=== PATIENT | male | born 1975 | race Caucasian/White ===

== ENCOUNTER → 2018-04-09 16:25 | Outpatient (CLI) | payer BC, SELFPAY ==
--- NOTE | 2018-04-09 16:29 | RAD_ITS ---
STUDY: X-RAY - ABDOMEN/PELVIS REASON FOR EXAM: Male, 42 years old. Nephrolithiasis. Right flank pain. TECHNIQUE: Two AP supine views of the abdomen and pelvis. COMPARISON: None. FINDINGS: Normal visualized lung bases. There is an unremarkable bowel gas pattern. There is no demonstrated free abdominal air. The visualized liver, spleen and kidneys are grossly normal in size and morphology. There is a vague 3 mm density which overlies the lower pole of the right kidney however this may represent density in the overlying colon. No other abnormal calcifications are seen. Normal soft tissue structures. Normal visualized osseous structures. RAD/Abdomen Single View IMPRESSION: 3 mm right renal calculus versus density in the overlying colon. Study is otherwise unremarkable. Electronically Signed: Calixto Edmondson DO at 22:26 EDT Tel [phone], Service support ,
== END ==
PROVIDERS: Family Provider Family Medicine; PCP Family Medicine; Referring Provider Family Medicine; Visit Provider Family Medicine
DX: N20.0 Calculus of kidney (principal)
CPT/HCPCS: 74018

== ENCOUNTER → 2019-06-27 08:22 | Outpatient (CLI) | payer BC, SELFPAY ==
[2019-06-27 10:31] LABS: ALB/GLOB Ratio 1.4 RATIO (0.9-2.4); AST(SGOT) 41 U/L (15-37); Alanine Aminotransfer ALT/SGPT 43 U/L (16-61); Albumin, Serum 4.2 g/dL (3.2-5.0); Alkaline Phosphatase 66 U/L (45-117); Anion Gap 5 (5-15); BUN 21 mg/dL (7-18); BUN/Creat Ratio 16.8 RATIO (10-20); Calcium,Total 8.9 mg/dL (8.5-10.1); Chloride 107 mmol/L (98-107); Cholesterol 211 mg/dL (200); Creatinine, Serum 1.25 mg/dL (0.70-1.30); EST Glomerular Filtration Rate 66 mL/min (>60); Est Glom Filt Rate - Afr Amer 80 mL/min (>60); Globulin 3.1 g/dL (2.2-4.2); Glucose 99 mg/dL (74-106); High Density Lipoprotein 57 mg/dL; Potassium 4.1 mmol/L (3.5-5.1); Protein, Total 7.3 g/dL (6.4-8.2); Sodium Level 143 mmol/L (136-145); Triglycerides 142 mg/dL; Very Low Density Lipoprotein 28 mg/dL (5-40)
== END ==
PROVIDERS: Family Provider Family Medicine; PCP Family Medicine; Referring Provider Family Medicine; Visit Provider Family Medicine
DX: E78.00 Pure hypercholesterolemia, unspecified (principal)
CPT/HCPCS: 36415; 80053; 80061

== ENCOUNTER → 2019-09-23 | Outpatient (CLI) | payer BC, SELFPAY ==
[2019-09-23 10:26] LABS: Absolute Lymphocyte Count 2.21 X10^3/uL (0.83-4.51); Basophil# 0.05 X10^3/uL; Basophil% 0.8 % (0-1); Eosinophil# 0.11 X10^3/uL; Eosinophils% 1.8 % (0-5); Hematocrit 48.3 % (40-54); Hemoglobin 16.8 g/dL (13.0-16.5); Lymphocyte # 2.21 X10^3/ul (4.0); Lymphocyte % 35.9 % (19-41); Mean Corp Hgb Conc 34.8 g/dL (32-36); Mean Corpuscular Hgb 29.9 pg (27.0-32.0); Mean Corpuscular Volume 86.1 fL (80-94); Mean Platelet Vol. 11.6 fl (6.2-12.0); Monocyte# 0.74 X10^3/uL; NRBC Flagged by Analyzer 0 % (0-5); Neutrophil # 3.01 X10^3/uL (2.7-7.7); Neutrophil % 48.9 % (47-70); Platelet Count 146 K/mm3 (150-450); RBC Distribution Width CV 11.8 % (11.6-14.6); RBC Distribution Width SD 36.4 fl (35.1-43.9); Red Blood Count 5.61 M/mm3 (4.6-6.2); White Blood Count 6.2 K/mm3 (4.4-11.0)
[2019-09-23 10:27] LABS: Erythrocyte Sedimentation Rate < 1 mm/hr (0-15)
[2019-09-23 10:53] LABS: Anion Gap 5 (5-15); BUN 17 mg/dL (7-18); BUN/Creat Ratio 15.7 RATIO (10-20); Calcium,Total 9.1 mg/dL (8.5-10.1); Chloride 108 mmol/L (98-107); Creatinine, Serum 1.08 mg/dL (0.70-1.30); EST Glomerular Filtration Rate 78 mL/min (>60); Est Glom Filt Rate - Afr Amer 95 mL/min (>60); Glucose 95 mg/dL (74-106); Potassium 4.2 mmol/L (3.5-5.1); Sodium Level 142 mmol/L (136-145); Thyroid Stim Hormone (TSH) 1.92 uIU/mL (0.358-3.74)
== END | disposition home or self-care (01) ==
LOC: MFPLAB 08:48
PROVIDERS: PCP Family Medicine; Visit Provider Family Medicine
DX: R42 Dizziness and giddiness (principal); R51 Headache
CPT/HCPCS: 36415; 80048; 83735; 84443; 85025; 85652

== ENCOUNTER → 2020-11-01 07:54 | Outpatient (CLI) | payer BC, SELFPAY ==
[2020-11-01 10:49] LABS: ALB/GLOB Ratio 1.5 RATIO (0.9-2.4); AST(SGOT) 24 U/L (15-37); Alanine Aminotransfer ALT/SGPT 30 U/L (16-61); Albumin, Serum 4.1 g/dL (3.2-5.0); Alkaline Phosphatase 68 U/L (45-117); Anion Gap 3 (5-15); BUN 14 mg/dL (7-18); BUN/Creat Ratio 11.2 RATIO (10-20); Chloride 104 mmol/L (98-107); Cholesterol 185 mg/dL (200); Creatinine, Serum 1.25 mg/dL (0.70-1.30); EST Glomerular Filtration Rate 66 mL/min (>60); Est Glom Filt Rate - Afr Amer 80 mL/min (>60); Globulin 2.7 g/dL (2.2-4.2); Glucose 103 mg/dL (74-106); High Density Lipoprotein 57 mg/dL; Potassium 4.3 mmol/L (3.5-5.1); Protein, Total 6.8 g/dL (6.4-8.2); Sodium Level 140 mmol/L (136-145); Triglycerides 86 mg/dL; Very Low Density Lipoprotein 17 mg/dL (5-40)
== END ==
PROVIDERS: PCP Family Medicine; Referring Provider Family Medicine; Visit Provider Family Medicine
DX: E78.00 Pure hypercholesterolemia, unspecified (principal)
CPT/HCPCS: 36415; 80053; 80061

== ENCOUNTER 2021-08-22 10:08 | Outpatient (CLI) | payer BC, SELFPAY ==
--- NOTE | 2021-08-22 10:14 | US_ITS ---
STUDY: ABDOMINAL ULTRASOUND - RIGHT UPPER QUADRANT REASON FOR VISIT: Male, 46 years old . Tender swelling/lump in the epigastric region. TECHNIQUE: Ultrasound evaluation of the area of interest was performed with real-time and static blackwell-scale imaging. TECHNICAL QUALITY: Adequate. COMPARISON: None. FINDINGS: Multiple imaging of the area of the painful lump was obtained. No sonographic abnormality is seen. US/Abdomen Limited IMPRESSION: No sonographic abnormality is seen. Electronically Signed: Saurav Shaw MD at 11:05 EST ,
== END 2021-08-22 23:59 | disposition home or self-care (01) ==
LOC: US 10:11
PROVIDERS: PCP Family Medicine; Referring Provider Family Medicine; Visit Provider Family Medicine
DX: R19.00 Intra-abdominal and pelvic swelling, mass and lump, unspecified site (principal)
CPT/HCPCS: 76705

== ENCOUNTER → 2021-11-20 | Outpatient (CLI) | payer BC, SELFPAY ==
--- NOTE | 2021-11-20 10:06 | RAD_ITS ---
STUDY: X-RAY - RIGHT ELBOW REASON FOR EXAM: Male, 46 years old. ELBOW PAIN TECHNIQUE: 3 view(s) of the LEFT elbow. COMPARISON: None. FINDINGS: Normal visualized humerus, radius and ulna. Normal radiocapitellar and ulnotrochlear articulations. The soft tissue structures are unremarkable. RAD/Elbow min 3 Views IMPRESSION: Normal x-ray examination of the LEFT elbow. Electronically Signed: Kanu Merlos MD at 20:05 EDT ,
== END | disposition home or self-care (01) ==
LOC: MTRAD 10:02
PROVIDERS: PCP Family Medicine; Referring Provider Family Medicine; Visit Provider Family Medicine
DX: M25.521 Pain in right elbow (principal)
CPT/HCPCS: 73080

== ENCOUNTER 2021-12-05 08:00 | Outpatient (RCR) | payer BC, SELFPAY ==
--- NOTE | 2021-10-29 10:26 | HP.PTEVAL ---
Patient's Visit Information STACEY JARQUIN is a 46 year old M referred to Physical Therapy by Dr. Jere Sal MD with a diagnosis of Right Medial Epicondylitis. Date of Evaluation: 10/29/21 Physical Therapist: Wojciech Zuniga, PT, NIKI, SCS, CSCS - Dorie Diaz is a pleasant 46yo who I'm familiar with as I treated him in the past. He states that is has had a gradual onset of right elbow pain over the last 2 months, primarily from building a structure in his backyard and playing golf. He is an avid golfer and is planning on playing in a tournament in [place] next . - Pain Right Elbow Pain Intensity (Out of 10): 6 Pain Intensity Range: 2, 8 - Objective PROM of Elbow and wrist is WFL. No crepitus noted with AROM/PROM. MMT R wrist Ext/ flexion 43/36 L wrist ext/flexion 40/31. Point tender at the inset of common tendon. Neg tinel sign at elbow no referred pain - Balance/Special Test Scores Quick DASH Score: 6.8175 - Goals Goal 1:: Understand the healing process and importance of bracing at wrist to alleviate tension on tendon Goal Time Frame: 1 Week Goal 2:: Start Eccentric strengthening when getting back from Golf tournament Goal Time Frame: 2 Weeks Goal 3:: Candidate for dexamethasone to decrease inflammation. Goal Time Frame: 1 Week - Rehabilitation Potential Rehabilitation Potential: Good - Anticipated Interventions Thank you for the opportunity to evaluate your patient. For Medicare and Medicare HMO plans, please review the plan of care and approve it. It will need to be FAXED BACK to us at [phone] for Medicare purposes. For Medicare only, by signing this I certify the plan of care. Please let me know if there are questions or concerns regarding this plan of care. Physician Signature: Date:
== END 2021-12-05 19:00 | disposition home or self-care (01) ==
LOC: PT 08:00
PROVIDERS: PCP Family Medicine; Referring Provider Family Medicine; Visit Provider Family Medicine
DX: M77.01 Medial epicondylitis, right elbow (principal)
CPT/HCPCS: 97014; 97035; 97140; 97161; G0283

== ENCOUNTER → 2022-12-18 | Outpatient (CLI) | payer BC, SELFPAY ==
[2022-12-18 15:33] LABS: Bacteria 0 SEEN /hpf (None Seen); Mucous, Urine 0 SEEN /hpf (<or=2+); Red Blood Cells-Urine 0 SEEN /hpf (0-5); Squamous Epithelial Cells - UA 0 SEEN /hpf (0-5); White Blood Cells 0 SEEN /hpf (0-5)
[2022-12-18 16:06] LABS: Color, Urine Yellow (Yellow); Glucose, Dipstick Normal (Normal); Ketone-Dipstick Negative (Negative); Leukocyte Esterase-Dipstick Negative /ul (Negative); Nitrite-Dipstick Negative (Negative); Occult Blood-Urine Negative /ul (Negative); Protein-Dipstick Negative (Negative); Urine Bilirubin Dipstick Negative (Negative); Urine Clarity Clear (Clear); Urine Urobilinogen Normal (Normal)
== END | disposition home or self-care (01) ==
LOC: LABSPEC 15:16
PROVIDERS: PCP Family Medicine; Referring Provider Family Medicine; Visit Provider Family Medicine
DX: N20.0 Calculus of kidney (principal)
CPT/HCPCS: 81001; 87086

== ENCOUNTER → 2023-02-02 | Outpatient (CLI) | payer BC, SELFPAY ==
[2023-02-02 11:32] LABS: ALB/GLOB Ratio 1.2 RATIO (0.9-2.4); AST(SGOT) 19 U/L (15-37); Alanine Aminotransfer ALT/SGPT 21 U/L (16-61); Albumin, Serum 3.8 g/dL (3.2-5.0); Alkaline Phosphatase 64 U/L (45-117); Anion Gap 3 (5-15); BUN 18 mg/dL (7-18); BUN/Creat Ratio 13.8 RATIO (10-20); Calcium,Total 8.9 mg/dL (8.5-10.1); Chloride 107 mmol/L (98-107); Cholesterol 262 mg/dL (200); EST Glomerular Filtration Rate 62 mL/min (>60); Est Glom Filt Rate - Afr Amer 75 mL/min (>60); Globulin 3.2 g/dL (2.2-4.2); Glucose 110 mg/dL (74-106); High Density Lipoprotein 57 mg/dL; Potassium 4.2 mmol/L (3.5-5.1); Sodium Level 140 mmol/L (136-145); Triglycerides 100 mg/dL; Very Low Density Lipoprotein 20 mg/dL (5-40)
== END | disposition home or self-care (01) ==
LOC: MTLAB 08:41
PROVIDERS: PCP Family Medicine; Referring Provider Family Medicine; Visit Provider Family Medicine
DX: Z00.00 Encounter for general adult medical examination without abnormal findings (principal)
CPT/HCPCS: 36415; 80053; 80061

== ENCOUNTER → 2023-12-01 | Outpatient (CLI) | payer BC, SELFPAY ==
[2023-12-01 10:48] LABS: ALB/GLOB Ratio 1.2 RATIO (0.9-2.4); AST(SGOT) 21 U/L (15-37); Alanine Aminotransfer ALT/SGPT 25 U/L (16-61); Alkaline Phosphatase 65 U/L (45-117); Anion Gap 6 (5-15); BUN 18 mg/dL (7-18); BUN/Creat Ratio 14.8 RATIO (10-20); Calcium,Total 9.2 mg/dL (8.5-10.1); Chloride 104 mmol/L (98-107); Cholesterol 189 mg/dL (200); Creatinine, Serum 1.22 mg/dL (0.70-1.30); EST Glomerular Filtration Rate 67 mL/min (>60); Est Glom Filt Rate - Afr Amer 81 mL/min (>60); Globulin 3.2 g/dL (2.2-4.2); Glucose 107 mg/dL (74-106); High Density Lipoprotein 65 mg/dL; PSA,Total - Annual Screen 0.42 ng/mL (0.00-4.00); Potassium 4.5 mmol/L (3.5-5.1); Protein, Total 7.2 g/dL (6.4-8.2); Sodium Level 139 mmol/L (136-145); Triglycerides 108 mg/dL; Very Low Density Lipoprotein 22 mg/dL (5-40)
== END | disposition home or self-care (01) ==
LOC: MFPLAB 08:47
PROVIDERS: PCP Family Medicine; Visit Provider Family Medicine
DX: Z12.5 Encounter for screening for malignant neoplasm of prostate (principal); E78.00 Pure hypercholesterolemia, unspecified
CPT/HCPCS: 36415; 80053; 80061; 84153; G0103

== ENCOUNTER → 2024-11-30 | Outpatient (CLI) | payer BC, SELFPAY ==
[2024-11-30 11:06] LABS: AST(SGOT) 25 U/L (<=37); Alanine Aminotransfer ALT/SGPT 18 U/L (<=46); Albumin, Serum 4.5 g/dL (3.5-5.0); Alkaline Phosphatase 68 U/L (40-129); Anion Gap 10 (5-15); BUN 19 mg/dL (4-19); BUN/Creat Ratio 16.5 RATIO (10-20); Calcium,Total 9.2 mg/dL (7.6-11.0); Carbon Dioxide 26.8 mmol/L (21.0-32.0); Chloride 102 mmol/L (98-108); Cholesterol 194 mg/dL (<=200); Creatinine, Serum 1.15 mg/dL (0.70-1.20); EST Glomerular Filtration Rate 77 (>60); Globulin 2.3 g/dL (2.2-4.2); Glucose 107 mg/dL (70-99); High Density Lipoprotein 50 mg/dL; Low Density Lipoprotein Calc. 126 mg/dL; PSA,Total - Annual Screen 0.48 ng/mL (0.02-4.00); Potassium 4.3 mmol/L (3.3-5.1); Protein, Total 6.8 g/dL (5.9-8.4); Sodium Level 139 mmol/L (133-145); Total Bilirubin 0.59 mg/dL (0.00-1.30); Triglycerides 90 mg/dL; Very Low Density Lipoprotein 18 mg/dL (5-40); cholesterol:hdl ratio screen 3.85
== END | disposition home or self-care (01) ==
LOC: MFPLAB 08:51
PROVIDERS: PCP Family Medicine; Referring Provider Family Medicine; Visit Provider Family Medicine
DX: E78.00 Pure hypercholesterolemia, unspecified (principal); Z12.5 Encounter for screening for malignant neoplasm of prostate
CPT/HCPCS: 36415; 80053; 80061; 84153; G0103

== ENCOUNTER → 2025-01-25 | Outpatient (CLI) | payer BC, SELFPAY ==
--- NOTE | 2025-01-25 06:37 | CT_ITS ---
PROCEDURE: LIMITED CHEST CT CARDIAC ONLY 01/25/2025 REASON FOR EXAM: PURE HYPERCHOLESTEROLEMIA, UNSPECIFIED TECHNIQUE: LIMITED CHEST CT CARDIAC ONLY CONTRAST: None One or more dose reduction techniques were used (e.g., Automated exposure control, adjustment of the mA and/or kV according to patient size, use of iterative reconstruction technique). RADIATION DOSE SUMMARY: CTDlvol: 12.19 mGy DLP: 219.42 mGycm COMPARISON: None FINDINGS: Small benign-appearing mediastinal lymph nodes. The heart is not enlarged. No evidence of coronary artery calcification. The lungs are clear. CT/Limited Chest CT Cardiac Only IMPRESSION: No evidence of coronary artery calcification. The lungs are clear. Reading Location: [place] [id number]
--- NOTE | 2025-01-25 06:37 | CT_ITS ---
PROCEDURE: LIMITED CHEST CT CARDIAC ONLY 01/25/2025 REASON FOR EXAM: PURE HYPERCHOLESTEROLEMIA, UNSPECIFIED TECHNIQUE: LIMITED CHEST CT CARDIAC ONLY CONTRAST: None One or more dose reduction techniques were used (e.g., Automated exposure control, adjustment of the mA and/or kV according to patient size, use of iterative reconstruction technique). RADIATION DOSE SUMMARY: CTDlvol: 12.19 mGy DLP: 219.42 mGycm COMPARISON: None FINDINGS: Small benign-appearing mediastinal lymph nodes. The heart is not enlarged. No evidence of coronary artery calcification. The lungs are clear. CT/Limited Chest CT Cardiac Only IMPRESSION: No evidence of coronary artery calcification. The lungs are clear. Reading Location: [place] [address]
--- OUTSIDE RECORDS SUMMARY | 2025-01-25 06:38 | XMS RPT_ITS | CCD ---
Author Organization [facility] Care Team Providers Care Collective Bargaining Specialist Name Role Phone Sandra Sal Primary Care Provider MARYA CONNELL Attending Unavailable MARYA CONNELL Referring Unavailable SANDRA SAL Primary Care Unavail able MARYA CONNELL Attending Unavailable MARYA CONNELL Referring Unavailable SANDRA SAL Primary Care Unavail able SANDRA SAL Admitting Unavail able MARYA CONNELL Attending Unavailable SANDRA SAL Referring Unavail able SANDRA SAL Primary Care Unavail able MARYA CONNELL Admitting Unavailable BASSAM BUENROSTRO Attending Unavail able MARYA CONNELL Referring Unavailable SANDRA SAL Primary Care Unavail able Sandra Sal MD Primary Care Provider Sandra Sal MD Primary Care Provider REGAN ALVARADO Attending UnavailREGAN Christianson Referring UnavailSANDRA Moya Primary Care UnavailSANDRA Moya Primary Care Unavailabl AIDAN Crespo Attending Unavailable AIDAN FREIRE Referring Unavailable SANDRA SAL Primary Care UnavailSandra Moya MD Primary Care Provider Unavailable Primary Care Provider Unavailpretty Sal MD, Dr. Handley Primary Care Provider Dr. Sandra Sal MD Attending Provider Dr. Sandra Sal MD Referring Provider [phone] Sandra Sal Attending Unavailable Sandra Sal Referring Unavailable Sandra Sal Primary Care Unavailable Sandra Sal Attending Unavailable Sandra Sal Referring Unavailable Sandra Sal Primary Care Unavailable Medications Current Medications Medication Drug Class(es) Dates Sig (Normalized) Sig (Original) aspirin 81 mg delayed release oral tablet (2 sources) Platelet Aggregation Inhibitor, Nonsteroidal Anti-inflammatory Drug take 1 tablet by mouth once daily aspirin 81 MG EC tablet Take 81 mg by mouth daily . 0 Active atorvastatin 10 mg oral tablet (7 sources) HMG-CoA Reductase Inhibitor Start: 11-11-19 08 atorvastatin calcium(LIPITOR 10 MG TAB) Take one(1) tablet daily. 0 11/11/2007 Active Comment on above: Take one(1) tablet d aily. ciprofloxacin 3 mg/ml ophthalmic solution (2 sources) Quinolone Antimicrobial Start: 10-16-19 25 End: 10-23-19 25 take 2 drop(s) into the eye(s) every four hours ciprofloxacin (Ciloxan) 0.3 % ophthalmic solution Indications: Discomfort of right eye Administer 2 drops into both eyes every 4 hours for 7 days. 5 mL 10/15/2024 10/22/2024 Active hydroCHLOROthiazide 25 mg oral tablet (4 sources) Thiazide Diuretic Start: 10-20-19 21 take 1 tablet by mouth once daily hydroCHLOROthiazide (HYDRODIURIL, ESIDRIX) 25 mg tablet Indications: Hypercalciuria Take 1 tablet by mouth once daily. 30 tablet 11 10/19/2020 Active Comment on above: Take 1 tablet by maikel th once daily. multivit with iron,minerals (MULTIVITAMIN AND MINERALS ORAL) (4 sources) multivit with iron,minerals (MULTIVITAMIN AND MINERALS ORAL) Take by mouth once daily. Active multivit with ir on,minerals (MULTIVITAMIN AND MINERALS ORAL) Take by mouth once daily. 0 Active Comment on above: Take by mouth once d aily. multivitamin (THERAGRAN) per tablet (2 sources) take 1 tablet by mouth once daily multivitamin (THERAGRAN) per tablet Take 1 tablet by mouth daily . 0 Active omega 9-pdx-nmf-fish oil (FISH OIL) 100-160-1,000 mg cap (4 sources) omega 3-dha-epa- fish oil (FISH OIL) 100-160-1,000 mg cap Take by mouth once daily. Active omega 3-dha-epa- fish oil (FISH OIL) 100-160-1,000 mg cap Take by mouth once daily. 0 Active Comment on above: Take by mouth once d aily. potassium citrate 10 meq extended release oral tablet (8 sources) Start: 11-28-2022 End: 12-08-2024 take 2 tablets by mouth twice daily potassium citrate ER (UROCIT-K) 10 mEq (1,080 mg) Indications: Kidney stone Take 2 tablets by mouth two times a day. 360 tablet 3 12/08/2024 Active Start: 10-29-2021 End: 10-22-2022 take 2 tablets by mouth twice daily potassium citrate ER (UROCIT-K) 10 mEq (1,080 mg) Indications: Kidney stone Take 2 tablets by mouth twice daily. 120 tablet 11 10/22/2022 Active Comment on above: Take 2 tablets by mo [facility] twice daily. Completed/Discontinued Medications Medication Drug Class(es) Dates Sig (Normalized) Sig (Original) gadoterate meglumine (DOTAREM) injection 16 mL (1 source) Start: 01-06-2019 End: 01-06-2019 gadoterate meglumine (DOTAREM) injection 16 mL ketorolac tromethamine 10 mg oral tablet (2 sources) Nonsteroidal Anti-inflammatory Drug, Cyclooxygenase Inhibitor Start: 08-05-2020 End: 10-22-2022 take 1 tablet by mouth every six hours as needed keTORolac (TORADOL) 10 mg tablet Take 1 tablet by mouth every 6 hours as needed. 20 tablet 0 08/05/2020 10/22/2022 Discontinued (Course of therapy completed) Comment on above: Take 1 tablet by maikel th every 6 hours as needed. ondansetron 4 mg disintegrating oral tablet (2 sources) Serotonin-3 Receptor Antagonist Start: 08-22-2019 End: 10-22-2022 take 1 tablet by mouth every six hours as needed ondansetron orally disintegrating (ZOFRAN ODT) 4 mg disintegrating tablet Take 1 tablet by mouth every 6 hours as needed. 10 tablet 0 08/22/2019 10/22/2022 Discontinued (Course of therapy completed) Comment on above: Take 1 tablet by maikel th every 6 hours as needed. tamsulosin hydrochloride 0.4 mg oral capsule (4 sources) alpha-Adrenergic Rob Start: 08-15-2020 End: 10-22-2022 take 1 capsule by mouth once daily tamsulosin (FLOMAX) 0.4 mg Indications: benign prostatic hyperplasia Take 1 capsule by mouth once daily. 15 capsule 0 08/29/2020 10/22/2022 Discontinued Comment on above: Take 1 capsule by mo ut once daily for 20 days. 30 minutes after the same meal each day. Take 1 capsule by mo ut once daily. Problems Active Problems Problem Classification Problem Date Documented Date Episodic/Chronic Abdominal pain (2 sources) Left flank pain; Translations: [Unspecified abdominal pain] Onset: 10-22-2022 Episodic Calculus of urinary tract (9 sources) Kidney stone; Translations: [Calculus of kidney] Onset: 08-29-2020 Episodic Disorders of lipid metabolism (2 sources) Pure hypercholesterolemia, unspecified; Translations: [Pure hypercholesterolemia, unspecified] Onset: 12-06-2024 Chronic Other eye disorders (2 sources) Pain in eye; Translations: [Ocular pain, right eye] 10-15-2024 Episodic Other nervous system disorders (2 sources) Numbness and tingling sensation of skin; Translations: [Numbness and tingling] Episodic Other nervous system disorders (1 source) Carpal tunnel syndrome of right wrist; Translations: [Carpal tunnel syndrome on right] Spondylosis; intervertebral disc disorders; other back problems (2 sources) Herniation of nucleus pulposus of cervical intervertebral disc; Translations: [HNP (herniated nucleus pulposus), cervical] Past or Other Problems Problem Classification Problem Date Documented Date Episodic/Chronic Bacterial infection; unspecified site (4 sources) Infection by methicillin sensitive Staphylococcus aureus; Translations: [Methicillin susceptible Staphylococcus aureus infection, unspecified site] Onset: 09-18-2008 09-18-2008 Episodic Other nervous system disorders (1 source) Paresthesia; Translations: [Paresthesia] Episodic Results Test Name Value Interpretation Reference Range Facility Anion gap in Serum or Plasma Ordered By: Sandra Sal on 11-30-2024 Anion gap [Moles/Vol] 10 mmol/L 11-24 [facility] BUN/creatinine ratioOrdered By: Sandra Sal on 11-30-2024 Urea nitrogen/Creatinine [Mass ratio] 16.5 mg/mg - [facility] Bilirubin, totalOrdered By: Sandra Sal on 11-30-2024 Bilirubin [Mass/Vol] 0.59 mg/dL 0.00-1.30 [facility] Calculated very low density lipoprotein (VLDL) cholesterol measurementOrdered By: Sandra Sal on 11-30-2024 Calculated very low density lipoprotein (VLDL) cholesterol measurement 18 mg/dL 5-40 [facility] Carbon dioxide, total [Moles /volume] in Central venous bloodOrdered By: Sandra Sal on 11-30-2024 CO2 [Moles/Vol] 26.8 mmol/L 21.0-32.0 [facility] Chloride assayOrdered By: Melva Sal on 11-30-2024 Chloride [Moles/Vol] 102 mmol/L 98-108 [facility] Comprehensive Metabolic Prof ilon 11-30-2024 Albumin [Mass/Vol] 4.5 g/dL Normal 3.5-5.0 [facility] Comment on above: Order Comment: Order Date: 11/30/24 Order Info: [id number] - CMP Order Info: [id number] - LIPID Order Info: [id number] - PSA Performed By: #### L [id number], L501.9910, L500.4100 #### [facility] [address] [place], [place], [id number] Albumin/Globulin [Mass ratio] 2.0 {ratio} Normal 0.9-2.4 [facility] Comment on above: Order Comment: Order Date: 11/30/24 Order Info: [id number] - CMP Order Info: [id number] - LIPID Order Info: [id number] - PSA Performed By: #### L 500.4050, L501.9910, L500.4100 #### [facility] [address] [place], [address] ALK PHOS 68 U/L Normal 40-129 [facility] Comment on above: Order Comment: Order Date: 11/30/24 Order Info: [id number] - CMP Order Info: [id number] - LIPID Order Info: [id number] - PSA Performed By: #### L 500.4050, L501.9910, L500.4100 #### [facility] [address] [place], [address] ALT [Catalytic activity/Vol] 18 U/L Normal <=46 [facility] Comment on above: Order Comment: Order Date: 11/30/24 Order Info: [id number] - CMP Order Info: - LIPID Order Info: [id number] - PSA Performed By: #### L 500.4050, L501.9910, L500.4100 #### [facility] [address] [place], [address] AST [Catalytic activity/Vol] 25 U/L Normal <=37 [facility] Comment on above: Order Comment: Order Date: 11/30/24 Order Info: [id number] - CMP Order Info: - LIPID Order Info: [id number] - PSA Performed By: #### L 500.4050, L501.9910, L500.4100 #### [facility] [address] [place], [address] Bilirubin [Mass/Vol] 0.59 mg/dL Normal 0.00-1.30 [facility] Comment on above: Order Comment: Order Date: 11/30/24 Order Info: [id number] - CMP Order Info: [id number] - LIPID Order Info: [id number] - PSA Performed By: #### L 500.4050, L501.9910, L500.4100 #### [facility] [address] [place], [address] BUN/CRE 16.5 RATIO Normal 10-20 [facility] Comment on above: Order Comment: Order Date: 11/30/24 Order Info: [id number] - CMP Order Info: - LIPID Order Info: [id number] - PSA Performed By: #### L 500.4050, L501.9910, L500.4100 #### [facility] [address] [place], [address] Calcium [Mass/Vol] 9.2 mg/dL Normal 7.6-11.0 [facility] Comment on above: Order Comment: Order Date: 11/30/24 Order Info: [id number] - CMP Order Info: [id number] - LIPID Order Info: [id number] - PSA Performed By: #### L 500.4050, L501.9910, L500.4100 #### [facility] [address] [place], [address] Chloride [Moles/Vol] 102 mmol/L Normal 98-108 [facility] Comment on above: Order Comment: Order Date: 11/30/24 Order Info: [id number] - CMP Order Info: [id number] - LIPID Order Info: [id number] - PSA Performed By: #### L 500.4050, L501.9910, L500.4100 #### [facility] [address] [place], [address] CO2 [Moles/Vol] 26.8 mmol/L Normal 21.0-32.0 [facility] Comment on above: Order Comment: Order Date: 11/30/24 Order Info: [id number] - CMP Order Info: [id number] - LIPID Order Info: [id number] - PSA Performed By: #### L 500.4050, L501.9910, L500.4100 #### [facility] [address] [place], [address] Creatinine [Mass/Vol] 1.15 mg/dL Normal 0.70-1.20 [facility] Comment on above: Order Comment: Order Date: 11/30/24 Order Info: [id number] - CMP Order Info: [id number] - LIPID Order Info: [id number] - PSA Performed By: #### L 500.4050, L501.9910, L500.4100 #### [facility] [address] [place], [address] GAP 10 Normal 5-15 [facility] Comment on above: Order Comment: Order Date: 11/30/24 Order Info: [id number] - CMP Order Info: - LIPID Order Info: [id number] - PSA Performed By: #### L 500.4050, L501.9910, L500.4100 #### [facility] [address] [place], [address] GFR/1.73 sq M.predicted among non-blacks MDRD (S/P/Bld) [Vol rate/Area] 77 mL/min/{1.73_m2} Normal >60 [facility] Comment on above: Order Comment: Order Date: 11/30/24 Order Info: [id number] - CMP Order Info: - LIPID Order Info: [id number] - PSA Result Comment: mL/m in/1.73m2 CKD-EPI Creatinine Equation (2020) Performed By: #### L 500.4050, L501.9910, L500.4100 #### [facility] [address] [place], [address] Globulin (S) [Mass/Vol] 2.3 g/dL Normal 2.2-4.2 [facility] Comment on above: Order Comment: Order Date: 11/30/24 Order Info: [id number] - CMP Order Info: - LIPID Order Info: [id number] - PSA Performed By: #### L 500.4050, L501.9910, L500.4100 #### [facility] [address] [place], [address] Glucose [Mass/Vol] 107 mg/dL High 70-99 [facility] Comment on above: Order Comment: Order Date: 11/30/24 Order Info: [id number] - CMP Order Info: - LIPID Order Info: [id number] - PSA Performed By: #### L 500.4050, L501.9910, L500.4100 #### [facility] [address] [place], [address] Potassium [Moles/Vol] 4.3 mmol/L Normal 3.3-5.1 [facility] Comment on above: Order Comment: Order Date: 11/30/24 Order Info: [id number] - CMP Order Info: [id number] - LIPID Order Info: [id number] - PSA Performed By: #### L 500.4050, L501.9910, L500.4100 #### [facility] [address] [place], [address] Sodium [Moles/Vol] 139 mmol/L Normal 133-145 [facility] Comment on above: Order Comment: Order Date: 11/30/24 Order Info: [id number] - CMP Order Info: [id number] - LIPID Order Info: [id number] - PSA Performed By: #### L 500.4050, L501.9910, L500.4100 #### [facility] [address] [place], [place], [id number] T PROT 6.8 g/dL Normal 5.9-8.4 [facility] Comment on above: Order Comment: Order Date: 11/30/24 Order Info: [id number] - CMP Order Info: [id number] - LIPID Order Info: [id number] - PSA Performed By: #### L 500.4050, L501.9910, L500.4100 #### [facility] [address] [place], [address] Urea nitrogen [Mass/Vol] 19 mg/dL Normal 4-19 [facility] Comment on above: Order Comment: Order Date: 11/30/24 Order Info: [id number] - CMP Order Info: [id number] - LIPID Order Info: [id number] - PSA Performed By: #### L 500.4050, L501.9910, L500.4100 #### [facility] [address] [place], [address] Glomerular filtration rate ( GFR) estimation/1.73 sq m using serum, plasma, or whole bOrdered By: Sandra Sal on 11-30-2024 GFR/1.73 sq M.predicted among non-blacks MDRD (S/P/Bld) [Vol rate/Area] 77 mL/min/{1.73_m2} >60 [facility] Comment on above: mL/min/1.73m2 CKD-EP I Creatinine Equation (2020) LDL calc ser/plasOrdered By: Sandra Sal on 11-30-2024 Cholesterol in LDL [Mass/Vol] 126 mg/dL [facility] Comment on above: Nmfdskiutu=075-160 m g/dL & Higher Pqau=076 mg/dL or greater Laboratory - Chemistry and C hemistry - challengeOrdered By: Sandra Sal on 11-30-2024 AST [Catalytic activity/Vol] 25 U/L <38 [facility] Lipid Profileon 11-30-2024 CHOL:HDL 3.85 Normal [facility] Comment on above: Order Comment: Order Date: 11/30/24 Order Info: [id number] - CMP Order Info: [id number] - LIPID Order Info: [id number] - PSA Performed By: #### L 500.4050, L501.9910, L500.4100 #### [facility] [address] [place], [address] Cholesterol [Mass/Vol] 194 mg/dL Normal <=200 [facility] Comment on above: Order Comment: Order Date: 11/30/24 Order Info: [id number] - CMP Order Info: [id number] - LIPID Order Info: [id number] - PSA Result Comment: Chol esterol level, Desirable <200 mg/dL Borderline high cholesterol 200-239 mg/dL High cholesterol >=240 mg/dL Recommendations of the NCEP Adult Treatment Panel for the following risk-cutoff thresholds for the [place] population. Performed By: #### L 500.4050, L501.9910, L500.4100 #### [facility] [address] [place], [address] Cholesterol in HDL [Mass/Vol] 50 mg/dL Normal [facility] Comment on above: Order Comment: Order Date: 11/30/24 Order Info: [id number] - CMP Order Info: [id number] - LIPID Order Info: [id number] - PSA Result Comment: Lu on[place] Cholesterol Education Program (NCEP) guidelines: <40 mg/dL: Low HDL-cholesterol (major risk factor for CHD) >= 60 mg/dL: High HDL-cholesterol (negative risk factor for CHD) HDL-cholesterol is affected by a number of factors, e.g. smoking, exercise, hormones, sex and age. Performed By: #### L 500.4050, L501.9910, L500.4100 #### [facility] [address] [place], [address] Cholesterol in LDL [Mass/Vol] 126 mg/dL Normal [facility] Comment on above: Order Comment: Order Date: 11/30/24 Order Info: [id number] - CMP Order Info: [id number] - LIPID Order Info: [id number] - PSA Result Comment: Bord vyyftf=873-333 mg/dL Higher Xdpw=413 mg/dL or greater Performed By: #### L 500.4050, L501.9910, L500.4100 #### [facility] [address] [place], [address] Cholesterol in VLDL [Mass/Vol] 18 mg/dL Normal 5-40 [facility] Comment on above: Order Comment: Order Date: 11/30/24 Order Info: [id number] - CMP Order Info: [id number] - LIPID Order Info: [id number] - PSA Performed By: #### L 500.4050, L501.9910, L500.4100 #### [facility] [address] [place], [address] Triglyceride [Mass/Vol] 90 mg/dL Normal [facility] Comment on above: Order Comment: Order Date: 11/30/24 Order Info: [id number] - CMP Order Info: [id number] - LIPID Order Info: [id number] - PSA Result Comment: The drugs N-Acetylcysteine and Metamizole may falsely depress this assay. Normal range: <150 mg/dL Borderline High: 150-199 mg/dL High: 200-499 mg/dL Very High: >500 mg/dL Performed By: #### L 500.4050, L501.9910, L500.4100 #### [facility] [address] [place], [address] PSA,Total - Annual Screenon 11-30-2024 PSA,TOT SCREEN 0.48 ng/mL Normal 0.02-4.00 [facility] Comment on above: Order Comment: Order Date: 11/30/24 Order Info: [id number] - CMP Order Info: [id number] - LIPID Order Info: [id number] - PSA Result Comment: This test was performed using the [employer] tPSA method. Measured values of a patient??sample can vary depending on the testing procedure used. PSA values determined on patient samples by different testing procedures cannot be used interchangeably. If there is a change in PSA assays while monitoring therapy, sequential testing should be performed to confirm baseline values. Performed By: #### L 500.4050, L501.9910, L500.4100 #### [facility] [address] [place], [address] Potassium measurement (mass/ volume)Ordered By: Sandra Sal on 11-30-2024 Potassium (Unsp spec) [Mass/Vol] 4.3 mmol/L 3.3-5.1 [facility] Screening total cholesterol/ high density lipoprotein (HDL) cholesterol ratioOrdered By: Sandra Sal on 11-30-2024 Cholesterol.total/Choles terol in HDL [Mass ratio] 3.85 {ratio} [facility] Serum creatinine measurement (mass/volume)Ordered By: Sandra Sal on 11-30-2024 Creatinine [Mass/Vol] 1.15 mg/dL 0.70-1.20 [facility] Serum globulin measurementOr dered By: Sandra Sal on 11-30-2024 Globulin (S) [Mass/Vol] 2.3 g/dL 2.2-4.2 [facility] Serum glucose measurement (m ass/volume)Ordered By: Sandra Sal on 11-30-2024 Glucose [Mass/Vol] 107 mg/dL High 70-99 [facility] Serum or plasma alanine bailey otransferase (ALT) measurementOrdered By: Sandra Sal on 11-30-2024 ALT [Catalytic activity/Vol] 18 U/L <47 [facility] Serum or plasma albumin traci urement (mass/volume)Ordered By: Sandra Sal on 11-30-2024 Albumin [Mass/Vol] 4.5 g/dL 3.5-5.0 [facility] Serum or plasma albumin/glob ulin mass ratioOrdered By: [facility] Sal on 11-30-2024 Albumin/Globulin [Mass ratio] 2.0 {ratio} 0.9-2.4 [facility] Serum or plasma alkaline bertha sphatase measurementOrdered By: Sandra Sal on 11-30-2024 ALP [Catalytic activity/Vol] 68 U/L 40-129 [facility] Serum or plasma calcium traci urement (mass/volume)Ordered By: Sandra Sal on 11-30-2024 Calcium [Mass/Vol] 9.2 mg/dL 7.6-11.0 [facility] Serum or plasma cholesterol in HDL measurement (mass/volume)Ordered By: Sandra Sal on 11-30-2024 Cholesterol in HDL [Mass/Vol] 50 mg/dL >40 [facility] Comment on above: National Cholesterol Education Program (NCEP) guidelines:<40 mg/dL: Low HDL-cholesterol (major risk factor for CHD)>= 60 mg/dL: High HDL-cholesterol (negative risk factor for CHD)HDL-cholesterol is affected by a number of factors, e.g. smoking, exercise, hormones, sex and age. Serum or plasma cholesterol measurement (mass/volume)Ordered By: Sandra Sal on 11-30-2024 Cholesterol [Mass/Vol] 194 mg/dL <201 [facility] Comment on above: Cholesterol level, D esirable <200 mg/dLBorderline high cholesterol 200-239 mg/dLHigh cholesterol >=240 mg/dLRecommendations of the NCEP Adult Treatment Panel for the following risk-cutoff thresholds for the [place] population. Serum or plasma urea nitroge n measurement (mass/volume)Ordered By: Sandra Sal on 11-30-2024 Urea nitrogen [Mass/Vol] 19 mg/dL 4-19 [facility] Sodium levelOrdered By: Adityakaden baird Doron on 11-30-2024 Sodium [Moles/Vol] 139 mmol/L 133-145 [facility] Total proteinOrdered By: Aditya monalisa Doron on 11-30-2024 Protein [Mass/Vol] 6.8 g/dL 5.9-8.4 [facility] Triglycerides measurementOrd ered By: Sandra Sal on 11-30-2024 Triglyceride [Mass/Vol] 90 mg/dL <199 [facility] Comment on above: The drugs N-Acetylcy steine and Metamizole may falsely depress this assay. Normal range: <150 mg/dLBorderline High: 150-199 mg/dLHigh: 200-499 mg/dLVery High: >500 mg/dL Basophil percentageOrdered B y: Jere Sal on 02-02-2023 Bilirubin [Mass/Vol] 1.00 mg/dL 0.20-1.00 [facility] Comment on above: For patients on eltr ombopag therapy, use of Dimension [place] TBIL is not recommended. Chloride [Moles/Vol] 107 mmol/L 98-107 [facility] Cholesterol [Mass/Vol] 262 mg/dL <200 [facility] Comment on above: <200 mg/dL Desirable 200-240 mg/dL Borderline >240 mg/dL High Risk Glucose [Mass/Vol] 110 mg/dL 74-106 [facility] Comment on above: Fasting Glucose resu lt from 100 to 125 mg/dL suggests IMPAIRED HOMEOSTASIS per A.D.A. criteria. Potassium [Moles/Vol] 4.2 mmol/L 3.5-5.1 [facility] Protein [Mass/Vol] 7.0 g/dL 6.4-8.2 [facility] Sodium [Moles/Vol] 140 mmol/L 136-145 [facility] Triglyceride [Mass/Vol] 100 mg/dL <199 [facility] Comment on above: The drugs N-Acetylcy steine and Metamizole may falsely depress this assay.Serum Triglycerides Reference Interval Normal <150 mg/dL Borderline high 150 - 199 mg/dL High 200 - 499 mg/dL Very High > or = 500 mg/dL Laboratory - Chemistry and C hemistry - challengeOrdered By: Jere Sal on 02-02-2023 ALP [Catalytic activity/Vol] 64 U/L 45-117 [facility] ALT [Catalytic activity/Vol] 21 U/L 16-61 [facility] CO2 [Moles/Vol] 30.0 mmol/L 21.0-32.0 [facility] Globulin (S) [Mass/Vol] 3.2 g/dL 2.2-4.2 [facility] Urea nitrogen/Creatinine [Mass ratio] 13.8 mg/mg 10-20 [facility] No Panel InformationOrdered By: Jere Sal on 02-02-2023 Estimated GFR (MDRD) Amer 75 mL/min >60 [facility] Comment on above: GFR Calc Estimated GFR (MDRD) Non-Af Amer 62 mL/min >60 [facility] Comment on above: Non- GFR Calc Serum or plasma albumin traci urement (mass/volume)Ordered By: Jere Sal on 02-02-2023 Albumin [Mass/Vol] 3.8 g/dL 3.2-5.0 [facility] Serum or plasma albumin/glob ulin mass ratioOrdered By: Jere Sal on 02-02-2023 Albumin/Globulin [Mass ratio] 1.2 {ratio} 0.9-2.4 [facility] Serum or plasma calcium traci urement (mass/volume)Ordered By: Jere Sal on 02-02-2023 Calcium [Mass/Vol] 8.9 mg/dL 8.5-10.1 [facility] Serum or plasma cholesterol in HDL measurement (mass/volume)Ordered By: Jere Sal on 02-02-2023 Cholesterol in HDL [Mass/Vol] 57 mg/dL >40 [facility] Comment on above: The drugs N-Acetylcy steine and Metamizole may falsely depress this assay. Reference Range HDL <40 mg/dL Low HDL Cholesterol HDL >or= 60 mg/dL High HDL Cholesterol Serum or plasma cholesterol in VLDL measurement (mass/volume)Ordered By: Jere Sal on 02-02-2023 Cholesterol in VLDL [Mass/Vol] 20 mg/dL 5-40 [facility] Serum or plasma creatinine m easurement (mass/volume)Ordered By: Jere Sal on 02-02-2023 Creatinine [Mass/Vol] 1.30 mg/dL 0.70-1.30 [facility] Comment on above: The validity of the calculated GFR & GFRAA in patients over 70 years has not been determined. Clinical correlation is essential. Serum or plasma low density lipoprotein (LDL) cholesterol measurement (mass/volume)Ordered By: Jere Sal on 02-02-2023 Cholesterol in LDL [Mass/Vol] 185 mg/dL 0-130 [facility] Serum or plasma urea nitroge n measurement (mass/volume)Ordered By: Jere Sal on 02-02-2023 Urea nitrogen [Mass/Vol] 18 mg/dL 7-18 [facility] Thin prep Papanicolaou smear with manual screeningOrdered By: Jere Sal on 02-02-2023 Thin prep Papanicolaou smear with manual screening 19 U/L 15-37 [facility] Thin prep Papanicolaou smear with manual screening 3 5-15 [facility] Culture, urineOrdered By: Dr Victorino Sal on 12-21-2022 Bacteria identified Cx Nom (U) Culture exhibits no growth. [facility] Basophil percentageOrdered B y: Dr. Sal on 12-18-2022 Basophil percentage 0 SEEN /hpf 0-5 [facility] Bilirubin Test strip Ql (U)O rdered By: Dr. Sal on 12-18-2022 Bilirubin Ql (U) Negative Negative [facility] Culture, urineOrdered By: Melva Sal on 12-18-2022 Bacteria identified Cx Nom (U) Culture exhibits no growth. [facility] Ketones Test strip Ql (U)Ord ered By: Dr. Sal on 12-18-2022 Ketones Ql (U) Negative Negative [facility] Mucus LM Ql (Urine sed)Order ed By: Dr. Sal on 12-18-2022 Mucus Ql (Urine sed) 0 SEEN /hpf [facility] Nitrite Test strip Ql (U)Ord ered By: Dr. Sal on 12-18-2022 Nitrite Ql (U) Negative Negative [facility] Protein Test strip Ql (U)Ord ered By: Dr. Sal on 12-18-2022 Protein Ql (U) Negative Negative [facility] Squamous epithelial cells de tection in urine sediment by light microscopyOrdered By: Dr. Sal on 12-18-2022 Epithelial cells.squamous LM Ql (Urine sed) 0 SEEN /hpf 0-5 [facility] Urine blood detectionOrdered By: Dr. Sal on 12-18-2022 RBC Ql (U) Negative Negative [facility] RBC Ql (U) 0 SEEN /hpf 0-5 [facility] Urine clarityOrdered By: Dr. Sal on 12-18-2022 Clarity (U) Clear Clear [facility] Urine color determinationOrd ered By: Dr. Sal on 12-18-2022 Color (U) Yellow Yellow [facility] Urine glucose detectionOrder ed By: Dr. Sal on 12-18-2022 Glucose Ql (U) Normal mg/dl Normal [facility] Urine leukocyte esterase det ection by dipstickOrdered By: Dr. Sal on 12-18-2022 Leukocyte esterase Test strip Ql (U) Negative Negative [facility] Urine pHOrdered By: Dr. Indira hernandez on 12-18-2022 pH (U) 8.0 [pH] 5.0 - 8.0 [facility] Urine sediment bacteria coun t by microscopy (number/high power field)Ordered By: Dr. Sal on 12-18-2022 Bacteria LM.HPF (Urine sed) [#/Area] 0 /[HPF] None Seen [facility] Urine specific gravity measu rementOrdered By: Dr. Sal on 12-18-2022 Specific gravity (U) [Rel density] 1.010 1.002-1.030 [facility] Urobilinogen Auto test strip Ql (U)Ordered By: Dr. Sal on 12-18-2022 Urobilinogen Ql (U) Normal mg/dl Normal [facility] CNOVon 10-22-2022 CNOV Office Visit (URHWST ) STACEY JARQUIN ([id number]) 1975 M Date Time Provider Department 10/22/22 9:10 AM AIDAN FREIRE During your visit today, we recorded the following information about you: Blood pressure Weight Height 120/80 77.1 kg 1.676 m Aidan Freire APRN.CNP 10/22/2022 1:21 PM Signed ESTABLISHED PATIENT OFFICE VISIT HISTORY OF PRESENT ILLNESS Stacey Jarquin is a 47 year old male with h/o kidney stones known to Dr. Alvarado who presents today for follow up. Left flank pain started Thursday and feels like there is a stone is moving. Discomfort is intermitent pain is mild. No fever or chills. No gross hematuria. 04/23/22 KUB showed stable left renal stone. Patient taking Urocit K - needs refill S/p right ureteroscopy laser with stent 08/2020 Will get KUB follow up pending results LAB RESULTS Creatinine Date Value Ref Range Status 08/05/2020 1.07 0.73 - 1.22 mg/dL Final No results found for: PSA Color (no units) Date Value 08/05/2020 Yellow Clarity (no units) Date Value 08/05/2020 Slightly Cloudy Glucose, Urine (no units) Date Value 08/05/2020 Negative Bilirubin, Urine (no units) Date Value 08/05/2020 Negative Ketones, Urine (no units) Date Value 08/05/2020 Negative Specific Jack, Ur (no units) Date Value 08/05/2020 1.025 Hemoglobin/Blood,Ur (no units) Date Value 08/05/2020 2+ pH, Urine (no units) Date Value 08/05/2020 6.5 Protein, Urine (no units) Date Value 08/05/2020 Comment: Visible blood causes falsely elevated results for analyte Protein. Due to this limitation, Protein will not be reported for patients whose urine contains visible blood. Urobilinogen (no units) Date Value 08/05/2020 0.2 EU/dL Nitrites (no units) Date Value 08/05/2020 Negative Leuk Esterase (no units) Date Value 08/05/2020 Negative MEDICATIONS: potassium citrate ER (UROCIT-K) 10 mEq (1,080 mg) Take 2 tablets by mouth twice daily. hydroCHLOROthiazide (HYDRODIURIL, ESIDRIX) 25 mg tablet Take 1 tablet by mouth once daily. tamsulosin (FLOMAX) 0.4 mg Take 1 capsule by mouth once daily. tamsulosin (FLOMAX) 0.4 mg Take 1 capsule by mouth once daily for 20 days. 30 minutes after the same meal each day. keTORolac (TORADOL) 10 mg tablet Take 1 tablet by mouth every 6 hours as needed. multivit with iron,minerals (MULTIVITAMIN AND MINERALS ORAL) Take by mouth once daily. omega 7-kmn-dvl-fish oil (FISH OIL) 100-160-1,000 mg cap Take by mouth once daily. ondansetron orally disintegrating (ZOFRAN ODT) 4 mg disintegrating tablet Take 1 tablet by mouth every 6 hours as needed. atorvastatin calcium(LIPITOR 10 MG TAB) Take one(1) tablet daily. REVIEW OF SYSTEMS CONSTITUTIONAL: Patient reports no recent fever or weight loss CARDIOVASCULAR: No chest pain, palpitations or ankle edema. RESPIRATORY: No wheezing, frequent cough or shortness of breath GENITOURINARY: See HPI HISTORIES PAST MEDICAL HISTORY Diagnosis Date COVID-19 07/29/2020 Kidney stones Mixed hyperlipidemia FAMILY HISTORY Problem Relation Age of Onset Hypertension Mother Heart Father Heart Brother Heart Maternal Grandmother Heart Maternal Grandfather Heart Paternal Grandmother Heart Paternal Grandfather PAST SURGICAL HISTORY Procedure Laterality Date LAPAROSCOPY SURG RPR INITIAL INGUINAL HERNIA 09/25/2008 RIGHT PAST SURGICAL HISTORY OF 2014 hernia repair PAST SURGICAL HISTORY OF 2010 Right THR PAST SURGICAL HISTORY OF 2011 left THR PAST SURGICAL HISTORY OF Deviated septum repair PAST SURGICAL HISTORY OF 06/2020 Right CTR PAST SURGICAL HISTORY OF 1994 left CTR SOCIAL HISTORY Social History Tobacco Use Smoking status: Never Smokeless tobacco: Never Vaping Use Vaping Use: Never used Substance Use Topics Alcohol use: Yes Comment: rarely Drug use: No PHYSICAL EXAMINATION General appearance: Well appearing, alert, in no acute distress, well-hydrated, well nourished.. BACK: no pain to palpation over spine or costovertebral angles. MUSCULOSKELETAL: Negative for joint pain or swelling. RESPIRATORY: Normal respiratory effort. SKIN: Normal color, no rash, no lesions.. ASSESSMENT/PLAN: 1. Left flank pain - ICD9: 789.09, ICD10: R10.9 (primary diagnosis) - XR ABDOMEN 1V SUPINE - Follow up pending results 2. Kidney stone - ICD9: 592.0, ICD10: N20.0 - POTASSIUM CITRATE ER 10 MEQ (1,080 MG) TABLET,EXTENDED RELEASE Aidan Freire APRN.[employer] PROFESSIONAL Allergies As of Date: 10/22/2022 (No Known Allergies) Date Reviewed: 10/22/2022 Reviewed by: Gisele Husain, JADON - Fully Assessed Reason for Visit: Kidney Stones [88676] Primary Visit Diagnosis:Left flank pain [R10.9] Other Visit Diagnosis:Kidney stone [N20.0] Order(s):UA DIP, URINE (POC) [[id number]] Order #: [id number] #:[id number] potassium citrate ER (UROCIT- (more content not included)... Normal [facility] UA DIP, URINE (POC)on 2022 BILIRUBIN UA (POCT) Negative Negative [facility] CLARITY UA (POCT) Clear [facility] COLOR UA (POCT) Yellow [facility] GLUCOSE UA (POCT) Negative Negative mg/dL [facility] HEMOGLOBIN/BLOOD UA (POCT) Negative Negative [facility] KETONE UA (POCT) Negative Negative mg/dL [facility] LEUKOCYTES UA (POCT) Negative Negative [facility] NITRITE UA (POCT) Negative Negative [facility] PH UA (POCT) 6.5 4.5 - 8.0 [facility] Protein Ql (U) Negative Negative mg/dL [facility] SPECIFIC GRAVITY UA (POCT) <=1.005 Abnormal 1.005 - 1.030 [facility] UROBILINOGEN UA (POCT) 0.2 E.U./dL Breanna l E.U./dL [facility] XR ABDOMEN 1V SUPINEon 10-22 XR ABDOMEN 1V SUPINE * * *Final Report* * * DATE OF EXAM: Oct 22 2022 9:47AM ANX [id number] - XR ABDOMEN 1V SUPINE / PROCEDURE REASON: multiple diagnoses * * * * Physician Interpretation * * * * EXAM TITLE: XR ABDOMEN 1V SUPINE DATE: 10/24/2022 7:59 AM INDICATION: Nephrolithiasis COMPARISON: 04/23/2022 FINDINGS: No abnormal calcifications overlie the urinary tract. Stable small calcification in the region of the tip of the right hepatic lobe may be a granuloma. No masses. Pelvic soft tissue surgical anchors and bilateral hip replacements. No acute bony abnormality. IMPRESSION: No radiographic evidence of nephrolithiasis. Instructor Nurse: YANNA Transcribe Date/Time: Oct 24 2022 7:59A Dictated by : KATHY OBANDO MD This examination was interpreted and the report reviewed and electronically signed by: KATHY OBANDO MD on Oct 24 2022 8:02AM EST [id number] Normal [facility] CNOVon 04-25-2022 CNOV Office Visit (AKURFL ) STACEY JARQUIN ([id number]) 1975 M Date Time Provider Department 04/25/22 8:45 AM REGAN ALVARADO During your visit today, we recorded the following information about you: Respiration Blood pressure Weight Height 18/minute 125/75 76.2 kg 1.676 m Regan Alvarado MD 04/25/2022 9:42 AM Signed ESTABLISHED PATIENT OFFICE VISIT PATIENT INFO: Stcaey Jarquin 46 year old HPI 04/25/2022 CC: stone Doing well without feeling of passing stones Dipstick urine negative Is on the Urocit-K 2 tablets twice a day and plans on staying on that KUB stable with small lower pole left renal calculus suspected Follow-up 12 months with KUB Past Urology Hx: 04/23/2021 CC: stone Patient has been fine since I last saw him and we did Litholink He stopped the hydrochlorothiazide because increased voiding at night and did not like being on it Also stop Urocit-K because was not sure if that was contributing but was not having GI side effects KUB shows faint evidence of 3-4 mm lower pole left renal stone that we know we have as per previous CT Urine today is negative He will restart the Urocit-K after discussion Litholink shows improved citrate and urine calcium still high but came down from previous values Follow-up with KUB 12 months 10/19/2020 CC: stone 20 years ago had a stone He did his Litholink studies Calcium high and citrate low and he wants to try hydrochlorothiazide and Urocit-K Wants to be aggressive with keeping stones away Urinalysis today-negative He will get Litholink and KUB in 6 months Litholink abnormals: Volume-2.08 L Calcium-380 Oxalate- Citrate-434 Uric acid- pH-5.627 Supersaturation calcium oxalate-7.34 09/07/2020 CC: stone Status post right ureteroscopy with laser and stent. Sent off some very small stone fragments but too small for reliable analysis per the lab Has actually been doing fine with the stent may be a little irritation Right stent removed He will do Litholink and see me back in about 6 weeks August 16, 2020-seen by Dr. East- 45 year old male refer for kidney stones. Recently in ER for r flank pain. Found to have 9 mm R proximal calc. Still with significant pain. Options discussed. Interested in treating as having significant discomfort and has low chance of passing it. covid + mid July. 900 HU's RADS: April 23, 2022-stable 4 mm left lower pole calculus April 04, [id number] 2.1 L; calcium-313; citrate-515 April 22, 2021-KUB-3-4 mm faint lower pole left renal calculus September 07, 2020-cystoscopy, right stent removal,- mild BPH August 29, 2020-right ureteroscopy with laser and stent-Able to see 8 mm proximal right calculus on fluoroscopy-Laser of stone and cannot visualize any fragments remaining on fluoroscopy as not able to get up to the kidney with semirigid or flexible August 05 2020-CT--7 x 9 mm proximal right ureteral calculus; 1 mm calculus lower pole right kidney; 3 mm LP and 1 mm calculus left kidney August 05, 2020-calcium-9.6 Creatinine Date Value Ref Range Status 08/05/2020 1.07 0.73 - 1.22 mg/dL Final No results found for: PSA Color (no units) Date Value 08/05/2020 Yellow Clarity (no units) Date Value 08/05/2020 Slightly Cloudy Glucose, Urine (no units) Date Value 08/05/2020 Negative Bilirubin, Urine (no units) Date Value 08/05/2020 Negative Ketones, Urine (no units) Date Value 08/05/2020 Negative Specific Jack, Ur (no units) Date Value 08/05/2020 1.025 Hemoglobin/Blood,Ur (no units) Date Value 08/05/2020 2+ pH, Urine (no units) Date Value 08/05/2020 6.5 Protein, Urine (no units) Date Value 08/05/2020 Comment: Visible blood causes falsely elevated results for analyte Protein. Due to this limitation, Protein will not be reported for patients whose urine contains visible blood. Urobilinogen (no units) Date Value 08/05/2020 0.2 EU/dL Nitrites (no units) Date Value 08/05/2020 Negative Leuk Esterase (no units) Date Value 08/05/2020 Negative Review of Systems Constitutional: Negative for chills, fatigue, fever and unexpected weight change. HENT: Negative for ear pain, sinus pressure and sore throat. Eyes: Negative for pain. Respiratory: Negative for chest tightness, shortness of breath and wheezing. Cardiovascular: Negative for chest pain and leg swelling. Gastrointestinal: Negative for abdominal pain, blood in stool, constipation, diarrhea and nausea. Endocrine: Negative for cold intolerance and heat intolerance. Genitourinary: Negative for decreased urine volume, difficulty urinating, dysuria, enuresis, flank pain, frequency, genital sores, hematuria and urgency. Neurological: Negative for dizziness, tremors and headaches. Hematological: Does not bruise/bleed easily. Psychiatric/Behavioral : (more content not included)... Normal [facility] UA DIP, URINE (POC)on 2021 BILIRUBIN UA (POCT) Negative Negative [facility] CLARITY UA (POCT) Clear [facility] COLOR UA (POCT) Yellow [facility] GLUCOSE UA (POCT) Negative Negative mg/dL [facility] HEMOGLOBIN/BLOOD UA (POCT) Negative Negative [facility] KETONE UA (POCT) Negative Negative mg/dL [facility] LEUKOCYTES UA (POCT) Negative Negative [facility] NITRITE UA (POCT) Negative Negative [facility] PH UA (POCT) 7.5 4.5 - 8.0 [facility] Protein Ql (U) Negative Negative mg/dL [facility] SPECIFIC GRAVITY UA (POCT) 1.015 1.005 - 1.030 [facility] UROBILINOGEN UA (POCT) 0.2 E.U./dL Breanna l E.U./dL [facility] XR ABDOMEN 1V SUPINEon 04-22 XR ABDOMEN 1V SUPINE * * *Final Report* * * DATE OF EXAM: Apr 22 2021 12:26PM MDX [id number] - XR ABDOMEN 1V SUPINE / PROCEDURE REASON: N20.0-Kidney stone * * * * Physician Interpretation * * * * EXAMINATION / TECHNIQUE: XR ABDOMEN 1V SUPINE PATIENT/TECHNOLOGIST PROVIDED HISTORY: KIDNEY STONES CLINICAL INFORMATION ( PROVIDED BY ORDERING CLINICIAN) : Kidney stone COMPARISON: CT dated 08/05/2020. RESULT: Nonspecific, nonobstructive bowel gas pattern. No free air although suboptimally evaluated on supine radiographs. 4 mm calcification projecting over the left kidney. No additional calcifications in the right kidney or within the pelvis. Postsurgical changes of bilateral total hip arthroplasties and hernia repair. No acute osseous abnormality. IMPRESSION: 4 mm left renal calculus. Instructor Nurse: YANNA Transcribe Date/Time: Apr 22 2021 12:49P Dictated by : ALINA FUENTES MD This examination was interpreted and the report reviewed and electronically signed by: ALINA FUENTES MD on Apr 22 2021 12:57PM EST [id number] [facility] XR RETROGRADE PYELOGRAM RTon 08-29-2020 XR RETROGRADE PYELOGRAM RT Final Report DATE OF EXAM: Aug 29 2020 12:16PM AWX [id number] - XR RETROGRADE PYELOGRAM RT / PROCEDURE REASON: SURGERY Physician Interpretation EXAM TITLE: XR RETROGRADE PYELOGRAM RT DATE: 08/29/2020 INDICATION: Intraoperative films for right sided lithotripsy and placement of right-sided ureteral stent. COMPARISON: None. Study consists of 5 images showing stone in the right UPJ. Final images show guidewire and right ureteral stent being placed. 1 minute and 10 seconds of fluoroscopic time utilized. IMPRESSION: Intraoperative films for treatment of right ureteral stone. Instructor Nurse: [facility] Transcribe Date/Time: Aug 29 2020 2:20P Dictated by : MARYCHUY SAEED MD This examination was interpreted and the report reviewed and electronically signed by: MARYCHUY SAEED MD on Aug 29 2020 2:22PM EST Normal [facility] CT ABD/PEL WO IVCONon 2020 CT ABD/PEL WO IVCON Final Report DATE OF EXAM: Aug 05 2020 3:04PM [facility][NOTE 3] [id number] - CT ABD/PEL WO IVCON / PROCEDURE REASON: Flank pain, stone disease suspected Physician Interpretation EXAMINATION: CT ABDOMEN AND PELVIS WITHOUT IV CONTRAST CLINICAL HISTORY: Sudden onset vomiting. Right lower quadrant pain. TECHNIQUE: Non-IV contrast imaging of the abdomen and pelvis was performed using standard technique, scanning from just above the dome of the diaphragm to the symphysis pubis. Unenhanced imaging is limited for the evaluation of some intra-abdominal and pelvic pathology. MQ: [id number] Contrast: IV: None CT Radiation dose: Integrated Dose-length product (DLP) for this visit = [address] Dose Reduction Employed: Automated exposure control (AEC) COMPARISON: None. RESULT: Abdomen / Pelvis: Liver: Unremarkable. Biliary: Gallbladder nondistended Spleen: No splenomegaly. Pancreas: Unremarkable. Adrenals: No mass. Kidneys: Mild right hydronephrosis. Obstructing calculus proximal right ureter measures 7 x 9 mm in diameter. There is a tiny 1 mm calculus within the lower pole of the right kidney. There is a 3 mm calculus in the mid to lower pole collecting system on the left. There is an additional 1 mm calculus in the midpole region on the left. GI Tract: No bowel dilation. Appendix normal no evidence for diverticulitis. Lymph Nodes: No lymphadenopathy. Mesentery/peritoneum: No ascites. Retroperitoneum: No mass. Vasculature: No evidence for abdominal aortic aneurysm Pelvis: No mass or ascites. Bones/Soft Tissues: Bilateral hip prostheses. No acute abnormality. Lower thorax: Patchy consolidative opacities in the inferomedial lung base regions bilaterally slightly more pronounced on the right than on the left consistent with a history of Covid positivity. Skein Drier (topogram) images: No additional findings. IMPRESSION: 7 x 9 mm obstructing calculus proximal right ureter. Mild right hydronephrosis. Bilateral nonobstructing kidney stones. Patchy consolidative infiltrates lung base regions bilaterally more pronounced on the right than on the left. Instructor Nurse: YANNA Transcribe Date/Time: Aug 05 2020 3:15P Dictated by : ARIS KOCH MD This examination was interpreted and the report reviewed and electronically signed by: ARIS KOCH MD on Aug 05 2020 3:21PM EST Normal [facility] MR CERVICAL SPINE WITH AND W ITHOUT CONTRASTon 01-06-2019 MR CERVICAL SPINE WITH AND WITHOUT CONTRAST EXAMINATION: MR CERVICAL SPINE WITH AND WITHOUT CONTRAST HISTORY: numbness and tingling Dx: R20.0 (Numbness and tingling) Must be on a 3 [employer] MRI machine per [place] Protocol. Injury/Trauma or Illness?:Illness/Other CONTRAST: GADOTERATE MEGLUMINE 0.5 MMOL/ML (376.9 MG/ML) INTRAVENOUS SOLUTION - 16 mL, TECHNIQUE: Sagittal T1, OLE T2, STIR and axial gradient echo and OLE T2 images performed. FINDINGS: Disc space narrowing C5-6 and C6-7. The vertebral bodies and disc spaces are otherwise normal in height and alignment. The marrow signal normal. The craniocervical junction, cervicothoracic junction, and cervical cord are otherwise normal. No intramedullary signal or enhancement abnormality. No evidence of contour abnormality. C1-2: Normal. C2-3: Normal. C3-4: Uncinate process hypertrophy with bilateral foraminal stenosis. C4-5: Disc bulge without stenosis. C5-6: Disc bulge and uncinate process hypertrophy with left foraminal narrowing. C6-7: Mild diffuse disc bulge without stenosis. C7-T1: Normal. There are no paraspinal masses identified. The vertebral bodies and disc spaces are otherwise normal. IMPRESSION: 1. Bilateral foraminal narrowing C3-4 left foraminal narrowing C5-6. 2. No evidence of central spinal canal stenosis. 3. No definite intramedullary signal abnormality or enhancement abnormality. JGW/sjk Workstation ID: [id number] Dictated by: Alisa HODGES on ThuJan 07, 2019 12:22:32 PM EDT Transcribed by: RYLEE DAVID on ThuJan 07, 2019 12:50:03 PM EDT Finalized by: Alisa HODGES on ThuJan 07, 2019 4:47:04 PM EDT Normal [facility] Comment on above: Order Comment: Must be on a 3 [employer] MRI machine per [place] Protocol Injury/Trauma or Illness?:Illness/Other How long have you had these symptoms (acute/chronic)?:Chronic Reason for exam?:numbness and tingling Type of Exam?:Initial Additional signs and symptoms?:. MR THORACIC SPINE WITH AND W ITHOUT CONTRASTon 01-06-2019 MR THORACIC SPINE WITH AND WITHOUT CONTRAST EXAMINATION: MR THORACIC SPINE WITH AND WITHOUT CONTRAST HISTORY: ORDERING SYSTEM PROVIDED HISTORY: numbness and tingling, TECHNOLOGIST PROVIDED HISTORY: Illness/Other Reason for exam: numbness and tingling Encounter Type: Initial Additional signs and symptoms: . ORDERING SYSTEM PROVIDED DIAGNOSIS CODES: R20.0 Numbness and tingling R20.2 Numbness and tingling COMPARISON: MRI of the cervical spine 01/06/2019. TECHNIQUE: Multiplanar, multisequence MR imaging of the thoracic spine was performed prior to and following the administration of intravenous contrast. CONTRAST: GADOTERATE MEGLUMINE 0.5 MMOL/ML (376.9 MG/ML) INTRAVENOUS SOLUTION - 16 mL, FINDINGS: The thoracic spine is in anatomic alignment. There is preservation of the vertebral body heights and disc spaces. Bone marrow signal is within normal limits with no acute fracture or focal bone marrow edema. No significant thoracic disc herniation, central canal stenosis or neural foraminal stenosis. No ligamentous discontinuity or signal abnormality. Cervical spinal cord is unremarkable in course, caliber, contour and signal. No abnormal enhancement. No paraspinal mass or fluid collection. The thoracic aorta is unremarkable in contour. There is a 9 mm T2 hyperintense lesion within the posterior liver, not fully characterized. IMPRESSION: 1. No significant thoracic discogenic disease or spinal canal stenosis. 2. No thoracic spinal cord signal abnormality or abnormal enhancement. 3. Indeterminate 9 mm T2 hyperintense lesion partially visualized in the posterior liver, not fully characterized, but statistically most likely reflecting a cyst or hemangioma. This lesion may be further characterized with a nonemergent contrast-enhanced liver protocol MRI. [facility]cdr Workstation ID: Unknown Dictated by: AMY SIMENTAL on ThuJan 07, 2019 12:18:10 PM EDT Transcribed by: LENORA DOCKERY on ThuJan 07, 2019 12:50:11 PM EDT Finalized by: AMY SIMENTAL on ThuJan 07, 2019 3:25:23 PM EDT [facility] Comment on above: Order Comment: Must be on a 3 Telsa MRI machine per [place] Protocol Injury/Trauma or Illness?:Illness/Other How long have you had these symptoms (acute/chronic)?:Chronic Reason for exam?:numbness and tingling Type of Exam?:Initial Additional signs and symptoms?:. Vital Signs Date Time Vital Sign Value Performing Clinician Facility 10-15-2024 17:03-0400 Body temperature 97.7 [degF] Chris Capo PA-C Work Phone: [facility] 10-15-2024 17:03-0400 Body weight 77.11 kg Chris Capo PA-C Work Phone: [facility] 10-15-2024 17:03-0400 Diastolic blood pressure 79 mm[Hg] Chris Capo PA-C Work Phone: [facility] 10-15-2024 17:03-0400 Heart rate 57 /min Chris Capo PA-C Work Phone: [facility] 10-15-2024 17:03-0400 Respiratory rate 16 /min Chris Capo PA-C Work Phone: [facility] 10-15-2024 17:03-0400 SaO2% (BldA) [Mass fraction] 97 % Chris Capo PA-C Work Phone: [facility] 10-15-2024 17:03-0400 Systolic blood pressure 130 mm[Hg] Chris Capo PA-C Work Phone: [facility] 10-22-2022 09:09-0400 Body height 167.6 cm Aidan Freire APRN.DELIVERY PROFESSIONAL Work Phone: [facility] 10-22-2022 09:09-0400 Body weight 77.11 kg Aidan Freire APRN.DELIVERY PROFESSIONAL Work Phone: [facility] 10-22-2022 09:09-0400 Diastolic blood pressure 80 mm[Hg] Aidan Freire APRN.DELIVERY PROFESSIONAL Work Phone: [facility] 10-22-2022 09:09-0400 Systolic blood pressure 120 mm[Hg] Aidan Freire MIREYA Work Phone: [facility] 04-25-2022 08:42-0400 Body height 167.6 cm Regan Alvarado MD Work Phone: [facility] 04-25-2022 08:42-0400 Body weight 76.2 kg Regan Alvarado MD Work Phone: [facility] 04-25-2022 08:42-0400 Diastolic blood pressure 75 mm[Hg] Regan Alvarado MD Work Phone: [facility] 04-25-2022 08:42-0400 Respiratory rate 18 /min Regan Alvarado MD Work Phone: [facility] 04-25-2022 08:42-0400 Systolic blood pressure 125 mm[Hg] Regan Alvarado MD Work Phone: [facility] 01-20-2019 07:46-0400 BMI (Body Mass Index) 28.73 kg/m2 [facility] 01-20-2019 07:46-0400 Body weight 80.[address] [facility] 01-20-2019 07:46-0400 BP Diastolic 82 mm[Hg] [facility] 01-20-2019 07:46-0400 BP Systolic 131 mm[Hg] [facility] 01-20-2019 07:46-0400 Height 167.[address] [facility] 01-20-2019 07:46-0400 Pulse (Heart Rate) 56 /min [facility] 01-06-2019 16:52-0400 BMI (Body Mass Index) 27.41 kg/m2 [facility] 01-06-2019 16:52-0400 Body weight 79.[address] [facility] 01-06-2019 16:52-0400 Height 170.2 cm Marya [facility] Encounters Encounter Date Encounter Type Care Provider Facility Start: 01-25-2025 ambulatory Sandra V[facility]quez [facility]ity:[facility] Start: 12-08-2024 End: 12-08-2024 Refill Regan Alvarado MD Work Phone: [facility] Comment on above: Refill Request Start: 11-30-2024 End: 11-30-[address] Sandra Sal MD Work Phone: [facility] Work Phone: Start: 11-30-2024 End: 11-30-[address] Sandra Sal MD -Laboratory [facility] Start: 11-30-2024 End: 11-30-2024 ambulatory Sandra Sal Facility:[facility] Start: 10-15-2024 End: 10-15-2024 Office outpatient visit 25 minutes Chris Scanlon PA-C Work Phone: [facility] Comment on above: Discomfort of right eye (Primary Dx) Start: 12-10-2023 Refill Aidan Jenkins APRN.DELIVERY PROFESSIONAL Work Phone: Urology Comment on above: Refill Request Start: 02-02-2023 End: 02-02-2023 ambulatory [facility] Work Phone: Start: 02-02-2023 End: 02-02-2023 Patient encounter procedure [facility] Work Phone: Start: 12-18-2022 End: 12-18-2022 ambulatory [facility] Work Phone: Start: 12-18-2022 End: 12-18-2022 Patient encounter procedure [facility]-Laboratory, Specimen Start: 10-22-2022 End: 10-22-2022 ambulatory AIDAN FREIRE Facility:[facility] Start: 10-22-2022 End: 10-22-2022 Patient encounter procedure Aidan Freire [employer]OTH WASHER BACK TENDER.DELIVERY PROFESSIONAL Work Phone: Urology Comment on above: Left flank pain (Thao margarette Dx); Kidney stone Start: 04-25-2022 End: 04-25-2022 ambulatory REGAN ALVARADO Facility:[facility] Start: 04-25-2022 End: 10-14-2022 Patient encounter procedure Regan Alvarado MD Work Phone: [facility] Comment on above: Kidney stone (Primar y Dx) Start: 01-20-2019 End: 01-20-2019 Patient encounter procedure MARYA CONNELL [facility] Start: 01-20-2019 End: 01-20-2019 Patient encounter procedure Maryafrances Li Ayo Work Phone: [facility] Comment on above: Carpal tunnel syndro me on right (Primary Dx); HNP (herniated nucleus pulposus), cervical; Paresthesia Start: 01-20-2019 End: 01-20-2019 Patient encounter procedure WILLISTON BRISSA [facility] Start: 01-20-2019 End: 01-20-2019 Office outpatient new 60 minutes Sandra Sal Work Phone: [facility] Comment on above: HNP (herniated nucle us pulposus), cervical (Primary Dx) Start: 01-06-2019 End: 01-07-2019 Patient encounter procedure MARYA CONNELL [facility] Start: 01-06-2019 End: 01-06-2019 Subsequent hospital visit by physician Marya Connell Work Phone: [facility] Comment on above: Numbness and tinglin g Procedures Date Procedure Procedure Detail Performing Clinician Start: 11-30-2024 Prostate specific an tigen measurement Dr. Sandra Sal MD Work Phone: Comment on above: This test was perfor med using the [employer] tPSA method. Measured values of a patient sample can vary depending on the testing procedure used. PSA values determined on patient samples by different testing procedures cannot be used interchangeably. If there is a change in PSA assays while monitoring therapy, sequential testing should be performed to confirm baseline values. Start: 12-18-2022 Bacteria identified in Urine by Culture Start: 12-18-2022 Urine culture Start: 10-22-2022 Urnls dip stick/tabl et rgnt auto w/o microscopy Aidan Freire APRN.CNP Work Phone: Start: 04-25-2022 Urnls dip stick/tabl et rgnt auto w/o microscopy Regan Alvarado MD Work Phone: Bacteria identified in Urine by Culture Urine culture Plan of Treatment Date Care Activity Detail Author Start: 06-13-2029 DTaP/Tdap/Td Vaccine s (2 - Td or Tdap) DTaP/Tdap/Td Vaccines (2 - Td or Tdap) [facility] Start: 06-13-2029 Urine microalbumin profile DTaP,Tdap,Td Vaccine (2 - Td or Tdap) [facility] Start: 03-13-2025 Influenza vaccination Influenz a Vaccine (Season Ended) [facility] Start: 03-13-2024 COVID-19 Vaccine () COVID-19 Vaccine () [facility] Start: 03-13-2024 Influenza vaccination Influenz a Vaccine (Season Ended) [facility] Start: 08-05-2023 DIABETES SCREEN DIABETES SCREEN [facility] Start: 08-05-2023 Diabetes Screening Diabetes Screenin g [facility] Start: 07-13-2023 Behavioral Health Screening Behavioral Health Screening [facility] Start: 2023 Pneumococcal vaccination Pneumococcal Vaccine (1 of 1 - PCV) [facility] Start: 2023 Pneumococcal Vaccine : 50+ (1 of 1 - PCV) Pneumococcal Vaccine: 50+ (1 of 1 - PCV) [facility] Start: 2023 Shingrix Vaccine (1 of 2) Shingrix Vaccine (1 of 2) [facility] Start: 2023 Zoster Vaccines (1 o f 2) Zoster Vaccines (1 of 2) [facility] Start: 04-25-2023 End: 05-25-2023 XR ABDOMEN 1V SUPINE XR ABDOMEN 1V SUPINE Radiology Routine Kidney stone Expected: 04/25/2023, Expires: 05/25/2023 [facility] Work Phone: Comment on above: Expected: 04/25/2023 , Expires: 05/25/2023 Start: 03-13-2023 Covid-19 Vaccine () Covid-19 Vaccine () [facility] Start: 03-13-2023 Influenza vaccination INFLUENZ A (Season Ended) [facility] Start: 07-13-2022 [facility] Start: 03-13-2022 Influenza vaccination INFLUENZA (#1) [facility] Start: 10-08-2021 COVID-19 VACCINE (4 - Booster for Moderna series) COVID-19 VACCINE (4 - Booster for Moderna series) [facility] Start: 07-13-2021 [facility]ION [facility] Start: 03-13-2019 Influenza vaccinatio n given [facility] Start: 01-20-2019 End: 01-20-2019 Office Visit [facility] Start: 2018 COLOGUARD (FIT-DNA) COLOGUARD (FIT-D NA) [facility] Start: 2018 Colonoscopy COLONOSCOPY [facility] Start: 2018 COLORECTAL CANCER SCREENING COLORECTAL CANCER SCREENING [facility] Start: [address] COLONOGRAPHY [facility] Start: 2018 FECAL OCCULT BLOOD FECAL OCCULT BLOO D [facility] Start: 2018 Screening for malign ant neoplasm of colon [facility] Start: 2018 SIGMOIDOSCOPY SIGMOIDOSCOPY [facility] Start: 2008 Lipid panel Lipid Screening [facility] Start: 2008 LIPID SCREEN LIPID SCREEN [facility] Start: 1992 Hepatitis B Vaccine (1 of 3 - 19+ 3-dose series) Hepatitis B Vaccine (1 of 3 - 19+ 3-dose series) [facility] Start: 1992 Hepatitis B Vaccines (1 of 3 - 19+ 3-dose series) Hepatitis B Vaccines (1 of 3 - 19+ 3-dose series) [facility] Start: 1992 Urine microalbumin profile DTAP,TDAP,TD (1 - Tdap) [facility] Start: 1991 Anxiety Screening Anxiety Screening [facility] Start: 1991 Depression Screening Depression Scre ening [facility] Start: 1991 HEPATITIS C SCREENING HEPATITIS C [facility] Start: 1991 Hepatitis C screening Hepatitis C [facility] Start: 1991 HIV SCREENING HIV SCREENING [facility] Start: 1991 HIV screening HIV Screening [facility] Start: 1976 History and physical examination, annual for health maintenance Wellness Visit [facility] Start: 1974 MMR Vaccines (1 of 1 - Standard series) MMR Vaccines (1 of 1 - Standard series) [facility] Start: 1973 HEPATITIS B (1 of 3 - 3-dose series) HEPATITIS B (1 of 3 - 3-dose series) [facility] Start: 1973 HIV screening HIV Screening [facility] Start: 1973 Lipid panel Lipid Panel [facility] Start: 1973 Prostate specific antigen measurement PSA Level [facility] Start: 1973 Screening for malign ant neoplasm of colon [facility] Start: 1973 Tetanus vaccination TETANUS EVERY 10 YR [facility] Start: 1973 Yearly Adult Physical Yearly Adult P hysical [facility] End: 01-06-2019 MRI of cervical spine MR Cervical Spine With And Without Contrast Imaging Routine Numbness and tingling Once for 1 Occurrences starting 01/06/2019 until 01/06/2019 [facility] Comment on above: Once for 1 Occurrenc es starting 01/06/2019 until 01/06/2019 MRI of cervical spine MR Cervica l Spine With And Without Contrast Imaging Routine Numbness and tingling 01/06/2019 7:06 PM EDT [facility] End: 01-06-2019 MRI of thoracic spine MR Thoracic Spine With And Without Contrast Imaging Routine Numbness and tingling Once for 1 Occurrences starting 01/06/2019 until 01/06/2019 [facility] Comment on above: Once for 1 Occurrenc es starting 01/06/2019 until 01/06/2019 MRI of thoracic spine MR Thoraci c Spine With And Without Contrast Imaging Routine Numbness and tingling 01/06/2019 7:06 PM EDT [facility] End: 11-21-2023 XR ABDOMEN 1V SUPINE XR ABDOMEN 1V SUPINE Radiology Routine Kidney stone Left flank pain 1 Occurrences starting 10/22/2022 until 11/21/2023 [facility] Work Phone: Comment on above: 1 Occurrences starti ng 10/22/2022 until 11/21/2023 XR ABDOMEN 1V SUPINE XR ABDOMEN 1V SUPINE Radiology Routine Kidney stone Left flank pain 10/22/2022 9:47 AM EDT [facility] Work Phone: [facility] Immunizations Immunization Date Immunization Notes Care Provider Bea chong 06-10-2018 influenza virus vacc ine, unspecified formulation Aidan Jenkins APRN.CNP Work Phone: [facility] Payers Date Payer Category Payer Self-pay [id number] 2017 [facility] [[email or web address] BLUE CARD PPO OOS [id number] 2017 [facility] [[email or web address] Managed Care ANTHEM HMP [id number] 2017 Unknown ANTHEM BCBS OUT OF STATE [facility] xxxxxxxxxxxxxxx 2017-Present [id number] 2017 Unknown ANTHEM BLUE CARD PPO OOS [id number] 2017- [phone] [address] [place] [address] PPO [id number] 2016 Unknown [id number] 1973 Unknown [id number] 1973 Unknown [id number] 00 1973 Unknown [id number] 00 1973 Unknown [id number] 03 Unknown [id number] Unknown [id number] 62 Unknown [id number] Social History Date Type Detail Facility Tobacco smoking status MTIS Unknown if ever smoked [facility] Start: 1975 Sex Assigned At Not on file [facility] Start: 01-20-2019 End: 04-25-2022 Tobacco smoking status MTIS Never smoker [facility] Start: 04-25-2022 End: 10-15-2024 Tobacco use and exposure Smokeless tobacco non-user [facility] Start: 04-25-2022 End: 10-22-2022 Alcohol intake Current drinker of alcohol (finding) [facility] Start: 08-22-2019 Alcohol Comment rarely [facility] Start: 1975 Sex Assigned At Male [facility] Start: 04-15-2022 End: 04-25-2022 Exposure to SARS-CoV-2 (event) Not sure [facility] Start: 08-08-2022 End: 10-22-2022 History of Social function [facility] Start: 08-08-2022 End: 10-22-2022 Tobacco use panel [facility] National Score (1-100), lower number is lower risk 51 [facility] Start: 08-14-2020 Gender identity Identifies as male gender (finding) [facility] Tobacco smoking status NHIS Unknown if ever smoked [facility] Work Phone: Medical Equipment Procedure Code Equipment Code Equipment Origin al Text Equipment Identifier Dates Stent Inlay Opti ma 6fr Taper Mechoopda Green Polymer Phreecoat 26cm [facility] - [id number] Start: 08-29-2020 Clinical Notes 04-22-2021 to 12-08-2024 Telephone Encounter - Michelle Benavidez MA - 12/08/2024 1:07 PM EDTTelephone Encounter - Michelle Benavidez MA - 12/08/2024 1:07 PM Carlotta Scanlon PA-C - 10/15/2024 4:35 PM EDT Note Date & Type Note Facility 12-08-2024 Telephone encounter Note Pharmacy faxed requesting the following refill. Requested Prescriptions Pending Prescriptions Disp Refills potassium citrate ER (UROCIT-K) 10 mEq (1,080 mg) 360 tablet 3 Sig: Take 2 tablets by mouth two times a day. Patient last appointment: Visit date not found Patient Phone numbers: [phone] (home) Request is for script(s) to be escript to pharmacy. Michelle Benavidez MA [facility] 12-08-2024 Miscellaneous Notes Pharmacy faxed requesting the following refill. Requested Prescriptions Pending Prescriptions Disp Refills potassium citrate ER (UROCIT-K) 10 mEq (1,080 mg) 360 tablet 3 Sig: Take 2 tablets by mouth two times a day. Patient last appointment: Visit date not found Patient Phone numbers: [phone] (home) Request is for script(s) to be escript to pharmacy. Michelle Benavidez MA documented in this encounter [facility] 10-15-2024 History of Present illness Narrative Subjective Patient ID: Stacey Jarquin is a 49 y.o. male. They present today with a chief complaint of right eye discomfort. Patient disposition: Home HISTORY OF PRESENT ILLNESS: This is an adult male non-contact lens wearer presenting for 2d of R eye irritation. Denies change in vision. Denies pain. He has been doing a project in his home involving drilling and sawdust and thinks maybe he got some in his eye. R eye watery but no dc. Sx improving. Past Medical History Allergies as of 10/15/2024 (No Known Allergies) (Not in a hospital admission) History reviewed. No pertinent past medical history. History reviewed. No pertinent surgical history. reports that he has never smoked. He has never used smokeless tobacco. He reports that he does not use drugs. Review of Systems Negative except as documented in the History of Present Illness. Objective Vitals: 10/15/24 1703 BP: 130/79 Pulse: 57 Resp: 16 Temp: 36.5 C (97.7 F) SpO2: 97% Weight: 77.1 kg (170 lb) No LMP for male patient. PHYSICAL EXAMINATION: CONSTITUTIONAL: well-appearing, nontoxic EYES: No scleral icterus or orbital trauma noted. No conjunctival injection. Increased lacrimation noted R eye only. Allergic shiner (minor edema under R eye) present. Wood's lamp exam was performed on R eye using visible light as well as fluorescein staining with cobalt blue light. Lids were everted. No visible trauma or FB. No increased fluorescein uptake was noted. The anterior chamber was clear. ENT: Head and face are unremarkable and atraumatic. Mucous membranes moist. LUNGS: No respiratory distress noted. No coughing noted. CARDIOVASCULAR: Well-perfused. ABDOMEN: Nonobese, nondistended MUSCULOSKELETAL: CALLAHAN with equal strength. Gait [observed to be normal.] SKIN: Good color, with no significant rashes, pallor, cyanosis, wounds. NEURO: Normal baseline mental status. No obvious neurological deficits, normal sensation and strength bilaterally. PSYCH: Appropriate mood and affect. MDM: Ddx included infectious processes eg stye or conjunctivitis, as well as injury such as corneal abrasion and retained FB. Fortunately none of these were evidenced on examination with fluorescein and [place]. I suspect given the hx that the pt sustained a minor corneal abrasion from his recent work on his house which is now not visible with staining. He was given empiric Cipro gtt Rx and will fu at ophthalmology PRN if unimproved. Referral to primary care provided. Procedures Diagnostic study results (if any) were reviewed by Chris Scanlon PA-C. No results found for this visit on 10/15/24. Assessment/Plan Allergies, medications, history, and pertinent labs/EKGs/Imaging reviewed by Chris Scanlon PA-C. Orders and Diagnoses Diagnoses and all orders for this visit: Discomfort of right eye - ciprofloxacin (Ciloxan) 0.3 % ophthalmic solution; Administer 2 drops into both eyes every 4 hours for 7 days. Medical Admin Record Follow Up Instructions No follow-ups on file. Electronically signed by Chris Scanlon PA-C 5:53 PM documented in this encounter [facility] Work Phone: 12-10-2023 Telephone encounter Note Patient called requesting the following refill. Requested Prescriptions Pending Prescriptions Disp Refills potassium citrate ER (UROCIT-K) 10 mEq (1,080 mg) [Pharmacy Med Name: POT CITRA ER TAB 10MEQ] 360 tablet 3 Sig: TAKE 2 TABLETS TWICE A DAY Patient last appointment: Visit date not found Patient Phone numbers: [phone] (home) Request is for script(s) to be escript to pharmacy. Mir Vides MA [facility] 12-10-2023 Miscellaneous Notes Patient called requesting the following refill. Requested Prescriptions Pending Prescriptions Disp Refills potassium citrate ER (UROCIT-K) 10 mEq (1,080 mg) [Pharmacy Med Name: POT CITRA ER TAB 10MEQ] 360 tablet 3 Sig: TAKE 2 TABLETS TWICE A DAY Patient last appointment: Visit date not found Patient Phone numbers: [phone] (home) Request is for script(s) to be escript to pharmacy. Mir Vides MA documented in this encounter [facility] 10-22-2022 Note HNO ID: [id number] Author: RT Kashmir(R) Service: Radiology Author Type: Technologist Type: Progress Notes Filed: 10/22/2022 9:41 AM Note Text: Radiology Service Progress Note PATIENT NAME: Stacey Jarquin DATE OF SERVICE: October 22, 2022 TIME: 9:41 AM PATIENT IDENTITY VERIFICATION COMPLETED USING TWO (2) IDENTIFIERS: Name and Date of confirmed by patient verbally. FALL SCREENING: Has the patient had 2 falls in the last year or 1 fall with injury or currently using an Ambulatory Assistive Device (Walker, Cane, Wheelchair, Crutches, etc.)? No PATIENT GENDER DATA: Male PATIENT RELEVANT IMPLANT DATA REVIEWED: Not Applicable RADIOLOGY DEPARTMENT: General X-ray: Exam(s) Completed: Abdomen X-Ray: Abdomen PERIPHERAL IV DATA: Not applicable SIGNED BY: RT Kashmir(R) October 22, 2022 9:41 AM [facility] 10-22-2022 Note HNO ID: [id number] Author: Aidan Freire APRN.DELIVERY PROFESSIONAL Service: ? Author Type: Nurse Practitioner Type: Progress Notes Filed: 10/22/2022 1:21 PM Note Text: ESTABLISHED PATIENT OFFICE VISIT HISTORY OF PRESENT ILLNESS Stacey Jarquin is a 47 year old male with h/o kidney stones known to Dr. Alvarado who presents today for follow up. Left flank pain started Thursday and feels like there is a stone is moving. Discomfort is intermitent pain is mild. No fever or chills. No gross hematuria. 04/23/22 KUB showed stable left renal stone. Patient taking Urocit K - needs refill S/p right ureteroscopy laser with stent 08/2020 Will get KUB follow up pending results LAB RESULTS Creatinine Date Value Ref Range Status 08/05/2020 1.07 0.73 - 1.22 mg/dL Final No results found for: PSA Color (no units) Date Value 08/05/2020 Yellow Clarity (no units) Date Value 08/05/2020 Slightly Cloudy Glucose, Urine (no units) Date Value 08/05/2020 Negative Bilirubin, Urine (no units) Date Value 08/05/2020 Negative Ketones, Urine (no units) Date Value 08/05/2020 Negative Specific Jack, Ur (no units) Date Value 08/05/2020 1.025 Hemoglobin/Blood,Ur (no units) Date Value 08/05/2020 2+ pH, Urine (no units) Date Value 08/05/2020 6.5 Protein, Urine (no units) Date Value 08/05/2020 Comment: Visible blood causes falsely elevated results for analyte Protein. Due to this limitation, Protein will not be reported for patients whose urine contains visible blood. Urobilinogen (no units) Date Value 08/05/2020 0.2 EU/dL Nitrites (no units) Date Value 08/05/2020 Negative Leuk Esterase (no units) Date Value 08/05/2020 Negative MEDICATIONS: potassium citrate ER (UROCIT-K) 10 mEq (1,080 mg) Take 2 tablets by mouth twice daily. hydroCHLOROthiazide (HYDRODIURIL, ESIDRIX) 25 mg tablet Take 1 tablet by mouth once daily. tamsulosin (FLOMAX) 0.4 mg Take 1 capsule by mouth once daily. tamsulosin (FLOMAX) 0.4 mg Take 1 capsule by mouth once daily for 20 days. 30 minutes after the same meal each day. keTORolac (TORADOL) 10 mg tablet Take 1 tablet by mouth every 6 hours as needed. multivit with iron,minerals (MULTIVITAMIN AND MINERALS ORAL) Take by mouth once daily. omega 2-ell-jwm-fish oil (FISH OIL) 100-160-1,000 mg cap Take by mouth once daily. ondansetron orally disintegrating (ZOFRAN ODT) 4 mg disintegrating tablet Take 1 tablet by mouth every 6 hours as needed. atorvastatin calcium(LIPITOR 10 MG TAB) Take one(1) tablet daily. REVIEW OF SYSTEMS CONSTITUTIONAL: Patient reports no recent fever or weight loss CARDIOVASCULAR: No chest pain, palpitations or ankle edema. RESPIRATORY: No wheezing, frequent cough or shortness of breath GENITOURINARY: See HPI HISTORIES PAST MEDICAL HISTORY Diagnosis Date COVID-19 07/29/2020 Kidney stones Mixed hyperlipidemia FAMILY HISTORY Problem Relation Age of Onset Hypertension Mother Heart Father Heart Brother Heart Maternal Grandmother Heart Maternal Grandfather Heart Paternal Grandmother Heart Paternal Grandfather PAST SURGICAL HISTORY Procedure Laterality Date LAPAROSCOPY SURG RPR INITIAL INGUINAL HERNIA 09/25/2008 RIGHT PAST SURGICAL HISTORY OF 2014 hernia repair PAST SURGICAL HISTORY OF 2010 Right THR PAST SURGICAL HISTORY OF 2011 left THR PAST SURGICAL HISTORY OF Deviated septum repair PAST SURGICAL HISTORY OF 06/2020 Right CTR PAST SURGICAL HISTORY OF 1994 left CTR SOCIAL HISTORY Social History Tobacco Use Smoking status: Never Smokeless tobacco: Never Vaping Use Vaping Use: Never used Substance Use Topics Alcohol use: Yes Comment: rarely Drug use: No PHYSICAL EXAMINATION General appearance: Well appearing, alert, in no acute distress, well-hydrated, well nourished.. BACK: no pain to palpation over spine or costovertebral angles. MUSCULOSKELETAL: Negative for joint pain or swelling. RESPIRATORY: Normal respiratory effort. SKIN: Normal color, no rash, no lesions.. ASSESSMENT/PLAN: 1. Left flank pain - ICD9: 789.09, ICD10: R10.9 (primary diagnosis) - XR ABDOMEN 1V SUPINE - Follow up pending results 2. Kidney stone - ICD9: 592.0, ICD10: N20.0 - POTASSIUM CITRATE ER 10 MEQ (1,080 MG) TABLET,EXTENDED RELEASE Aidan Ferire APRN.[facility] 10-22-2022 History of Present illness Narrative ESTABLISHED PATIENT OFFICE VISIT HISTORY OF PRESENT ILLNESS Stacey Jarquin is a 47 year old male with h/o kidney stones known to Dr. Alvarado who presents today for follow up. Left flank pain started Thursday and feels like there is a stone is moving. Discomfort is intermitent pain is mild. No fever or chills. No gross hematuria. 04/23/22 KUB showed stable left renal stone. Patient taking Urocit K - needs refill S/p right ureteroscopy laser with stent 08/2020 Will get KUB follow up pending results LAB RESULTS Creatinine Date Value Ref Range Status 08/05/2020 1.07 0.73 - 1.22 mg/dL Final No results found for: PSA Color (no units) Date Value 08/05/2020 Yellow Clarity (no units) Date Value 08/05/2020 Slightly Cloudy Glucose, Urine (no units) Date Value 08/05/2020 Negative Bilirubin, Urine (no units) Date Value 08/05/2020 Negative Ketones, Urine (no units) Date Value 08/05/2020 Negative Specific Jack, Ur (no units) Date Value 08/05/2020 1.025 Hemoglobin/Blood,Ur (no units) Date Value 08/05/2020 2+ pH, Urine (no units) Date Value 08/05/2020 6.5 Protein, Urine (no units) Date Value 08/05/2020 Comment: Visible blood causes falsely elevated results for analyte Protein. Due to this limitation, Protein will not be reported for patients whose urine contains visible blood. Urobilinogen (no units) Date Value 08/05/2020 0.2 EU/dL Nitrites (no units) Date Value 08/05/2020 Negative Leuk Esterase (no units) Date Value 08/05/2020 Negative MEDICATIONS: potassium citrate ER (UROCIT-K) 10 mEq (1,080 mg) Take 2 tablets by mouth twice daily. hydroCHLOROthiazide (HYDRODIURIL, ESIDRIX) 25 mg tablet Take 1 tablet by mouth once daily. tamsulosin (FLOMAX) 0.4 mg Take 1 capsule by mouth once daily. tamsulosin (FLOMAX) 0.4 mg Take 1 capsule by mouth once daily for 20 days. 30 minutes after the same meal each day. keTORolac (TORADOL) 10 mg tablet Take 1 tablet by mouth every 6 hours as needed. multivit with iron,minerals (MULTIVITAMIN AND MINERALS ORAL) Take by mouth once daily. omega 5-xlv-ngr-fish oil (FISH OIL) 100-160-1,000 mg cap Take by mouth once daily. ondansetron orally disintegrating (ZOFRAN ODT) 4 mg disintegrating tablet Take 1 tablet by mouth every 6 hours as needed. atorvastatin calcium(LIPITOR 10 MG TAB) Take one(1) tablet daily. REVIEW OF SYSTEMS CONSTITUTIONAL: Patient reports no recent fever or weight loss CARDIOVASCULAR: No chest pain, palpitations or ankle edema. RESPIRATORY: No wheezing, frequent cough or shortness of breath GENITOURINARY: See HPI HISTORIES PAST MEDICAL HISTORY Diagnosis Date COVID-19 07/29/2020 Kidney stones Mixed hyperlipidemia FAMILY HISTORY Problem Relation Age of Onset Hypertension Mother Heart Father Heart Brother Heart Maternal Grandmother Heart Maternal Grandfather Heart Paternal Grandmother Heart Paternal Grandfather PAST SURGICAL HISTORY Procedure Laterality Date LAPAROSCOPY SURG RPR INITIAL INGUINAL HERNIA 09/25/2008 RIGHT PAST SURGICAL HISTORY OF 2014 hernia repair PAST SURGICAL HISTORY OF 2010 Right THR PAST SURGICAL HISTORY OF 2011 left THR PAST SURGICAL HISTORY OF Deviated septum repair PAST SURGICAL HISTORY OF 06/2020 Right CTR PAST SURGICAL HISTORY OF 1994 left CTR SOCIAL HISTORY Social History Tobacco Use Smoking status: Never Smokeless tobacco: Never Vaping Use Vaping Use: Never used Substance Use Topics Alcohol use: Yes Comment: rarely Drug use: No PHYSICAL EXAMINATION General appearance: Well appearing, alert, in no acute distress, well-hydrated, well nourished.. BACK: no pain to palpation over spine or costovertebral angles. MUSCULOSKELETAL: Negative for joint pain or swelling. RESPIRATORY: Normal respiratory effort. SKIN: Normal color, no rash, no lesions.. ASSESSMENT/PLAN: 1. Left flank pain - ICD9: 789.09, ICD10: R10.9 (primary diagnosis) - XR ABDOMEN 1V SUPINE - Follow up pending results 2. Kidney stone - ICD9: 592.0, ICD10: N20.0 - POTASSIUM CITRATE ER 10 MEQ (1,080 MG) TABLET,EXTENDED RELEASE Aidan Freire APRN.[employer] documented in this encounter [facility] 04-25-2022 Note HNO ID: [id number] Author: Regan Alvarado MD Service: ? Author Type: Physician Type: Progress Notes Filed: 04/25/2022 9:42 AM Note Text: ESTABLISHED PATIENT OFFICE VISIT PATIENT INFO: Stacey Jarquin 46 year old HPI 04/25/2022 CC: stone Doing well without feeling of passing stones Dipstick urine negative Is on the Urocit-K 2 tablets twice a day and plans on staying on that KUB stable with small lower pole left renal calculus suspected Follow-up 12 months with KUB Past Urology Hx: 04/23/2021 CC: stone Patient has been fine since I last saw him and we did Litholink He stopped the hydrochlorothiazide because increased voiding at night and did not like being on it Also stop Urocit-K because was not sure if that was contributing but was not having GI side effects KUB shows faint evidence of 3-4 mm lower pole left renal stone that we know we have as per previous CT Urine today is negative He will restart the Urocit-K after discussion Litholink shows improved citrate and urine calcium still high but came down from previous values Follow-up with KUB 12 months 10/19/2020 CC: stone 20 years ago had a stone He did his Litholink studies Calcium high and citrate low and he wants to try hydrochlorothiazide and Urocit-K Wants to be aggressive with keeping stones away Urinalysis today-negative He will get Litholink and KUB in 6 months Litholink abnormals: Volume-2.08 L Calcium-380 Oxalate- Citrate-434 Uric acid- pH-5.627 Supersaturation calcium oxalate-7.34 09/07/2020 CC: stone Status post right ureteroscopy with laser and stent. Sent off some very small stone fragments but too small for reliable analysis per the lab Has actually been doing fine with the stent may be a little irritation Right stent removed He will do Litholink and see me back in about 6 weeks August 16, 2020-seen by Dr. East- 45 year old male refer for kidney stones. Recently in ER for r flank pain. Found to have 9 mm R proximal calc. Still with significant pain. Options discussed. Interested in treating as having significant discomfort and has low chance of passing it. covid + mid July. 900 HU's RADS: April 23, 2022-stable 4 mm left lower pole calculus April 04, [id number] 2.1 L; calcium-313; citrate-515 April 22, 2021-KUB-3-4 mm faint lower pole left renal calculus September 07, 2020-cystoscopy, right stent removal,- mild BPH August 29, 2020-right ureteroscopy with laser and stent-Able to see 8 mm proximal right calculus on fluoroscopy-Laser of stone and cannot visualize any fragments remaining on fluoroscopy as not able to get up to the kidney with semirigid or flexible August 05 2020-CT--7 x 9 mm proximal right ureteral calculus; 1 mm calculus lower pole right kidney; 3 mm LP and 1 mm calculus left kidney August 05, 2020-calcium-9.6 Creatinine Date Value Ref Range Status 08/05/2020 1.07 0.73 - 1.22 mg/dL Final No results found for: PSA Color (no units) Date Value 08/05/2020 Yellow Clarity (no units) Date Value 08/05/2020 Slightly Cloudy Glucose, Urine (no units) Date Value 08/05/2020 Negative Bilirubin, Urine (no units) Date Value 08/05/2020 Negative Ketones, Urine (no units) Date Value 08/05/2020 Negative Specific Jack, Ur (no units) Date Value 08/05/2020 1.025 Hemoglobin/Blood,Ur (no units) Date Value 08/05/2020 2+ pH, Urine (no units) Date Value 08/05/2020 6.5 Protein, Urine (no units) Date Value 08/05/2020 Comment: Visible blood causes falsely elevated results for analyte Protein. Due to this limitation, Protein will not be reported for patients whose urine contains visible blood. Urobilinogen (no units) Date Value 08/05/2020 0.2 EU/dL Nitrites (no units) Date Value 08/05/2020 Negative Leuk Esterase (no units) Date Value 08/05/2020 Negative Review of Systems Constitutional: Negative for chills, fatigue, fever and unexpected weight change. HENT: Negative for ear pain, sinus pressure and sore throat. Eyes: Negative for pain. Respiratory: Negative for chest tightness, shortness of breath and wheezing. Cardiovascular: Negative for chest pain and leg swelling. Gastrointestinal: Negative for abdominal pain, blood in stool, constipation, diarrhea and nausea. Endocrine: Negative for cold intolerance and heat intolerance. Genitourinary: Negative for decreased urine volume, difficulty urinating, dysuria, enuresis, flank pain, frequency, genital sores, hematuria and urgency. Neurological: Negative for dizziness, tremors and headaches. Hematological: Does not bruise/bleed easily. Psychiatric/Behavioral: Negative for behavioral problems. The patient is not nervous/anxious. I reviewed and confirmed ROS obtained by [facility] HISTORIES PAST MEDICAL HISTORY Diagnosis Date COVID-19 07/29/2020 Kidney stones Mixed hyperlipidemia FAMILY HISTORY Problem Relation (more content not included)... [facility] 04-25-2022 Instructions Regan Alvarado MD - 04/25/2022 8:55 AM EDT Abdomen x-ray in 12 months PATIENT INFORMATION: Stone precautions: 1 The amount of fluids in your diet. It is very important to drink plenty of liquids. Your goal should be 10-12 glasses a day. At least 5-6 glasses should be water. Goal is to achieve 2 L of urine output over a 24-hour period. You may also want to consider drinking lemonade. Research suggests that lemonade may be helpful in reducing the risk of calcium oxalate stone formation. 2. The amount of protein in your diet. Eating large amounts of protein (Specifically animal protein) may increase the risk of kidney stone formation. As a part of a balanced diet, your daily protein needs can usually be met with 4 to 6 ounces of protein per day, since other food groups (fat-free or low-fat dairy, whole grains, and vegetables) provide additional sources of protein. A Registered Dietitian can assist with determining your specific protein needs. 3 The amount of sodium in your diet. Reduce the amount of sodium in your diet to 2-3 grams per day. This can lead to decreased amount of calcium excreted in the urine. Limit eating processed foods such as hot dogs, deli meats, sausage, canned products, dry soup mixes, sauerkraut, pickles, and various convenience mixes. 4 Normal calcium diet This consist of consuming approximately 6448-6109 mg/day of dietary calcium A low calcium diet can actually increase your chances of forming calcium stones 5. CITRIC ACID AND KIDNEY STONES What is it and how can it help? Citric acid is found in many fruits and fruit juices. It is not a vitamin or mineral (and should not be confused with ascorbic acid - Vit C!), and is not necessary in the diet. It is, however, beneficial for those with stones. It helps to inhibit stone formation and can help to dissolve kidney stone crystals before they form into a stone. Citric acid is protective against stones - the more citrate you have in your urine, the more protected you'll be against forming new stones and ones already there from getting larger. How does citrate protect against stones? Citric acid in it's natural form (ie. citrus fruit - carleen, limes) does not alkalinize the urine as citrate does from a medication (ie. Potassium citrate). Citrate binds with calcium in the urine, which in turn, keeps the calcium soluble and unavailable for binding with oxalate or phosphate crystals to form stones. What are the best food sources? Most commonly found in citrus fruits and juices, but carleen and limes have the most citric acid content. Other fresh fruits and veggies also contain citrate and will benefit your citrate level, but no to the extent that carleen and limes will. Carleen and limes will also not contribute excess calories to your diet. A half cup (4 oz) of pure lemon or ohogamiut juice in 32 oz of water OR 32 oz of prepared low-sugar lemonade (think Crystal Light) provide about the same amounts of citric acid. Remember - lemonade is not lemon juice! Lemonade is diluted lemon juice with a lot of sugar! 10 Easy Tips for Increasing your Citric Acid Intake Eat 5 or more fruits and veggies daily. While carleen and limes are the most beneficial, increasing your intake of all fruits and veggies (especially those of the citrus variety) will positively contribute to your citrate level. Squeeze fresh lemon or lemon juice into ice cube trays, fill with water, then freeze. You can then use these cubes for your water or other beverages. You can also do the same with limes/ohogamiut juice if your prefer that taste more. You can also use both together! Squeeze fresh lemon or ohogamiut juice to any beverage! Dilute 2 oz lemon/ohogamiut juice with 16 oz of water and drink twice a day. Goal should be about 4 oz per day Drink low-sugar, low-calorie lemonade everyday. Full calorie lemonades are not recommended as they contain a lot of fructose, which can increase the risk for stones and weight gain. To make homemade lemonade: squeeze 4 oz (half-cup) of fresh lemon juice into a pitcher and add a small amount of sugar or sugar substitute. You can also use commercially prepared lemonade mixes, such as Minute Maid Light, Tropicana Light, or Crystal Light, since these are high in citric acid content but have very little sugar and calories. Of those, the eotjb-wu-lvnjsxn drinks have more citric acid than those that come in a powder. Make a lemon or ohogamiut spritzer: Pour 2 cups fresh lemon/ohogamiut juice (about 9 medium carleen or limes) in a large pitcher, add 1 cup of Splenda or other no-calorie sweetener, then add 1 liter chilled club soda once the sugar is dissolved, plus a few slices of carleen/limes, and some ice cubes. Chill completely before serving. Use fresh squeezed lemon or ohogamiut with EVOO on salad - will also save calories by avoiding high-fat salad dressing! Tip - roll carleen or limes on a hard surface while pressing down with your palm prior to cutting them. This will help to release their juices more easily. Alternatively, you can heat them for about 30 seconds in the microwave before squeezing. Use fresh squeezed lemon or ohogamiut juice on fruit salads too! Not only will you get the added citrate benefit, but the acid will help prevent fresh cut fruits from [place] with exposure to air Use lemon or ohogamiut juice on fish or in marinades for any type of meat. Look for recipes that contain these ingredients Read labels! Choose products that have citric listed at the beginning of the ingredients list. Some lemon-limes sodas (7Up or Sprite) are also relatively high in citric acid. If you drink dark sodas, consider switching to one of the clear ones with the lemon-ohogamiut content. Dietary Approaches to Stop Hypertension Diet (DASH)--This diet is high in fruits and vegetables and moderate in low-fat dairy products and low in animal protein.Individuals consuming this diet where found to have significantly reduced risk of developing kidney stones Use the ChooseMyPlate.gov web site to plan a well-balanced diet. Carbohydrates, proteins, and fats are necessary for the proper functioning, maintenance, and repair of your body. In addition to these major nutrients, the body requires water, minerals, and vitamins for good health. documented in this encounter [facility] 04-25-2022 History of Present illness Narrative ESTABLISHED PATIENT OFFICE VISIT PATIENT INFO: Stacey Jarquin 46 year old HPI 04/25/2022 CC: stone Doing well without feeling of passing stones Dipstick urine negative Is on the Urocit-K 2 tablets twice a day and plans on staying on that KUB stable with small lower pole left renal calculus suspected Follow-up 12 months with KUB Past Urology Hx: 04/23/2021 CC: stone Patient has been fine since I last saw him and we did Litholink He stopped the hydrochlorothiazide because increased voiding at night and did not like being on it Also stop Urocit-K because was not sure if that was contributing but was not having GI side effects KUB shows faint evidence of 3-4 mm lower pole left renal stone that we know we have as per previous CT Urine today is negative He will restart the Urocit-K after discussion Litholink shows improved citrate and urine calcium still high but came down from previous values Follow-up with KUB 12 months 10/19/2020 CC: stone 20 years ago had a stone He did his Litholink studies Calcium high and citrate low and he wants to try hydrochlorothiazide and Urocit-K Wants to be aggressive with keeping stones away Urinalysis today-negative He will get Litholink and KUB in 6 months Litholink abnormals: Volume-2.08 L Calcium-380 Oxalate- Citrate-434 Uric acid- pH-5.627 Supersaturation calcium oxalate-7.34 09/07/2020 CC: stone Status post right ureteroscopy with laser and stent. Sent off some very small stone fragments but too small for reliable analysis per the lab Has actually been doing fine with the stent may be a little irritation Right stent removed He will do Litholink and see me back in about 6 weeks August 16, 2020-seen by Dr. East- 45 year old male refer for kidney stones. Recently in ER for r flank pain. Found to have 9 mm R proximal calc. Still with significant pain. Options discussed. Interested in treating as having significant discomfort and has low chance of passing it. covid + mid July. 900 HU's RADS: April 23, 2022-stable 4 mm left lower pole calculus April 04, [id number] 2.1 L; calcium-313; citrate-515 April 22, 2021-KUB-3-4 mm faint lower pole left renal calculus September 07, 2020-cystoscopy, right stent removal,- mild BPH August 29, 2020-right ureteroscopy with laser and stent-Able to see 8 mm proximal right calculus on fluoroscopy-Laser of stone and cannot visualize any fragments remaining on fluoroscopy as not able to get up to the kidney with semirigid or flexible August 05 2020-CT--7 x 9 mm proximal right ureteral calculus; 1 mm calculus lower pole right kidney; 3 mm LP and 1 mm calculus left kidney August 05, 2020-calcium-9.6 Creatinine Date Value Ref Range Status 08/05/2020 1.07 0.73 - 1.22 mg/dL Final No results found for: PSA Color (no units) Date Value 08/05/2020 Yellow Clarity (no units) Date Value 08/05/2020 Slightly Cloudy Glucose, Urine (no units) Date Value 08/05/2020 Negative Bilirubin, Urine (no units) Date Value 08/05/2020 Negative Ketones, Urine (no units) Date Value 08/05/2020 Negative Specific Jack, Ur (no units) Date Value 08/05/2020 1.025 Hemoglobin/Blood,Ur (no units) Date Value 08/05/2020 2+ pH, Urine (no units) Date Value 08/05/2020 6.5 Protein, Urine (no units) Date Value 08/05/2020 Comment: Visible blood causes falsely elevated results for analyte Protein. Due to this limitation, Protein will not be reported for patients whose urine contains visible blood. Urobilinogen (no units) Date Value 08/05/2020 0.2 EU/dL Nitrites (no units) Date Value 08/05/2020 Negative Leuk Esterase (no units) Date Value 08/05/2020 Negative Review of Systems Constitutional: Negative for chills, fatigue, fever and unexpected weight change. HENT: Negative for ear pain, sinus pressure and sore throat. Eyes: Negative for pain. Respiratory: Negative for chest tightness, shortness of breath and wheezing. Cardiovascular: Negative for chest pain and leg swelling. Gastrointestinal: Negative for abdominal pain, blood in stool, constipation, diarrhea and nausea. Endocrine: Negative for cold intolerance and heat intolerance. Genitourinary: Negative for decreased urine volume, difficulty urinating, dysuria, enuresis, flank pain, frequency, genital sores, hematuria and urgency. Neurological: Negative for dizziness, tremors and headaches. Hematological: Does not bruise/bleed easily. Psychiatric/Behavioral: Negative for behavioral problems. The patient is not nervous/anxious. I reviewed and confirmed ROS obtained by [facility] HISTORIES PAST MEDICAL HISTORY Diagnosis Date COVID-19 07/29/2020 Kidney stones Mixed hyperlipidemia FAMILY HISTORY Problem Relation Age of Onset Hypertension Mother Heart Father Heart Brother Heart Maternal Grandmother Heart Maternal Grandfather Heart Paternal Grandmother Heart Paternal Grandfather SOCIAL HISTORY Social History Tobacco Use Smoking status: Never Smokeless tobacco: Never Vaping Use Vaping Use: Never used Substance Use Topics Alcohol use: Yes Comment: rarely Drug use: No MEDICATIONS: potassium citrate ER (UROCIT-K) 10 mEq (1,080 mg) Take 2 tablets by mouth twice daily. hydroCHLOROthiazide (HYDRODIURIL, ESIDRIX) 25 mg tablet Take 1 tablet by mouth once daily. tamsulosin (FLOMAX) 0.4 mg Take 1 capsule by mouth once daily. tamsulosin (FLOMAX) 0.4 mg Take 1 capsule by mouth once daily for 20 days. 30 minutes after the same meal each day. keTORolac (TORADOL) 10 mg tablet Take 1 tablet by mouth every 6 hours as needed. multivit with iron,minerals (MULTIVITAMIN AND MINERALS ORAL) Take by mouth once daily. omega 7-slw-lhc-fish oil (FISH OIL) 100-160-1,000 mg cap Take by mouth once daily. ondansetron orally disintegrating (ZOFRAN ODT) 4 mg disintegrating tablet Take 1 tablet by mouth every 6 hours as needed. atorvastatin calcium(LIPITOR 10 MG TAB) Take one(1) tablet daily. Physical Exam HENT: Head: Normocephalic and atraumatic. Nose: Nose normal. Neck: Trachea: No tracheal deviation. Pulmonary: Effort: Pulmonary effort is normal. No respiratory distress. Musculoskeletal: General: No deformity. Normal range of motion. Cervical back: Normal range of motion. Skin: General: Skin is warm. Neurological: Mental Status: He is alert and oriented to person, place, and time. Gait: Gait is intact. Psychiatric: Mood and Affect: Mood and affect normal. Cognition and Memory: Memory normal. Risk/Benefit Discussion: FOLLOW UP (1s&1w; 3s): Return in about 1 year (around 04/25/2023). ASSESSMENT/PLAN: 1. Kidney stone - ICD9: 592.0, ICD10: N20.0 - XR ABDOMEN 1V SUPINE Regan Alvarado Please note: This note has been produced using speech recognition software and may contain errors related to that system including grammar, punctuation, spelling, gender and words and phrases that may be inappropriate. documented in this encounter [facility] 04-22-2021 Note HNO ID: [id number] Author: RT Marcia(R) Service: Radiology Author Type: Technologist Type: Progress Notes Filed: 04/22/2021 12:25 PM Note Text: Radiology Service Progress Note PATIENT NAME: Stacey Jarquin DATE OF SERVICE: April 22, 2021 TIME: 12:25 PM PATIENT IDENTITY VERIFICATION COMPLETED USING TWO (2) IDENTIFIERS: Name and Date of confirmed by patient verbally. FALL SCREENING: Has the patient had 2 falls in the last year or 1 fall with injury or currently using an Ambulatory Assistive Device (Walker, Cane, Wheelchair, Crutches, etc.)? No PATIENT GENDER DATA: Male PATIENT RELEVANT IMPLANT DATA REVIEWED: Not Applicable RADIOLOGY DEPARTMENT: General X-ray: Exam(s) Completed: Abdomen X-Ray: Abdomen PERIPHERAL IV DATA: Not applicable SIGNED BY: RT Marcia(R) April 22, 2021 12:25 PM [facility] Evaluation note Diagnosis Kidney stone- Primary Calculus of kidney documented in this encounter [facility] note* Diagnosis Left flank pain- Primary Abdominal pain, unspecified site Kidney stone Calculus of kidney documented in this encounter [facility] noteNo assessment information availableWPremier [facility] Work Phone: Evaluation note* Diagnosis Kidney stone Calculus of kidney documented in this encounter [facility] note* Diagnosis Discomfort of right eye- Primary documented in this encounter [facility] Work Phone: Evaluation note* Diagnosis Kidney stone Calculus of kidney [facility] Diagnostic Procedure Only (Routine) - Pending Review Specialty Diagnoses / Procedures Referred By Jamee t Referred To Contact XR IMAGING Diagnoses Kidney stone Procedures XR ABDOMEN 1V SUPINE RADIOLOGIC EXAM ABDOMEN 1 VIEW Regan Alvarado MD [address] [place] [address] Xr Imaging Referral ID Status Reason Start Date Expiration Date Visits Requested Visits Authorized [id number] Pending Review Auto-Generat ed Referral 3 05/25/2023 1 1 [facility] for referral (narrative)* Diagnostic Procedure Only (Routine) - Closed Specialty Diagnoses / Procedures Referred By Contac t Referred To Contact XR IMAGING Diagnoses Kidney stone Left flank pain Procedures XR ABDOMEN 1V SUPINE RADIOLOGIC EXAM ABDOMEN 1 VIEW Aidan Freire APRN.CNP [address] [place] [address] Xr Imaging Referral ID Status Reason Start Date Expiration Date V isits Requested Visits Authorized [id number] Closed Auto-Generate d Referral 10/22/2022 11/21/2023 1 1 [facility] for referral (narrative)No reason for referral information availableWPremier [facility] Work Phone: Reason for Referral Status Reason Specialty Diagnoses / Procedures Referre d By Contact Referred To Contact Closed Radiology Diagnoses Numbness and tingling Procedures MR Cervical Spine With And Without Contrast Marya Connell MD [address] [place] [address] [place] [id number] Status Reason Specialty Diagnoses / Procedures Referred By Contact Referred To Contact Authorized Specialty Services Required/Patie nt's Best Interest Physical Therapy Diagnoses HNP (herniated nucleus pulposus), cervical Marya Connell MD [address] [place] [address] Status Reason Specialty Diagnoses / Procedures Referred By Contact Referred To Contact Authorized Neurology Diagnoses HNP (herniated nucleus pulposus), cervical Marya Connell MD [address] [place] [address] [address] [place] [address] Bassam Buenrostro MD [address] [facility] [address] [place] [address] Status Reason Specialty Diagnoses / Procedures Referre d By Contact Referred To Contact Closed Radiology Diagnoses Numbness and tingling Procedures MR Thoracic Spine With And Without Contrast Marya Connell MD [address] [place] [address] Assessments Diagnosis Numbness and tingling Disturbance of skin sensation Diagnosis HNP (herniated nucleus pulposus), cervical- Primary Displacement of cervical intervertebral disc without myelopathy Diagnosis Numbness and tingling Disturbance of skin sensation Diagnosis Carpal tunnel syndrome on right- Primary Carpal tunnel syndrome HNP (herniated nucleus pulposus), cervical Displacement of cervical intervertebral disc without myelopathy Paresthesia Disturbance of skin sensation Advance Directives No Advanced Directives Records FoundDocuments on File Type Date Recorded Patient Nurses Director Expl anation Advance Directives and Livin g Will 01/06/2019 4:40 PM Instructions * Patient Instructions* Marya Connell MD - 01/20/2019 8:44 AM EDT ASSESSMENT & PLAN: No problem-specific Assessment & Plan notes found for this encounter. Orders Placed This Encounter Procedures Ambulatory referral to Neurology Ambulatory ref to Therapy (PT/OT/ST) Requested Prescriptions No prescriptions requested or ordered in this encounter Follow-up: No follow-ups on file. 1. EMG/NCS to better characterize the underlying pathology 2. Referral to outpatient PT 3. We will discuss via phone after #1 and #2. Next steps may involve referral to spine center. I instructed patient to contact me sooner with concerns. Answered questions and discussed assessment and plan at length. MR images independently reviewed by me with my comments in Diagnostic Testing Summary section. documented in this encounter History of Present Illness * Marya Connell MD - 01/20/2019 8:09 AM EDT Neurology Clinic Consult Neurology [facility] 01/20/2019 Marya Connell MD [address] [facility] [address] [facility] [address] Patient: Stacey Jarquin Date of : 1975 (43 y.o.) Referring Provider: Sandra Sal PCP: Sandra Sal MD ASSESSMENT & PLAN: No problem-specific Assessment & Plan notes found for this encounter. Orders Placed This Encounter Procedures Ambulatory referral to Neurology Ambulatory ref to Therapy (PT/OT/ST) Requested Prescriptions No prescriptions requested or ordered in this encounter Follow-up: Return if symptoms worsen or fail to improve. 1. EMG/NCS to better characterize the underlying pathology 2. Referral to outpatient PT 3. We will discuss via phone after #1 and #2. Next steps may involve referral to spine center. I instructed patient to contact me sooner with concerns. Answered questions and discussed assessment and plan at length. MR images independently reviewed by me with my comments in Diagnostic Testing Summary section. DIAGNOSTIC TESTING SUMMARY: (MRI/CT/XR, EEG, EMG, CSF, Cardiac, Labs) Radiology images independently reviewed by me with my comments immediately below: MRI C-spine: Agree with interpretation. Unremarkable, except foraminal stenosis C3-4 and C5-6. MRI T-spine: Unremarkable. SUBJECTIVE: Chief Complaint: numbness of mid back and intermittently into R arm History of Present Illness (HPI): Informant(s): Patient Stacey Jarquin is a 43 y.o. male, with a history of CTS s/p release on left who presents with backnumbness. Around 6 months ago when leaving his garage the garage door hit him on the top of his head and he felt a jolt. Since that time he has persistent paresthesias between his shoulder blades, 6/10 intensity. Intermittently his R arm will go to sleep intensity 8/10. No weakness, no change in vision, speaking, swallowing, bowel, bladder sexual functioning. No N/V/F/C. Review of Systems: All systems reviewed and negative except pertinent positives and negatives documented in the History of Present Illness (HPI). Past Medical History: Diagnosis Date CTS (carpal tunnel syndrome) No past surgical history on file. Family History Problem Relation Age of Onset Spinal muscular atrophy Cousin Alcohol use: (0.6 oz pure alcohol = 1 beer or 6 oz = 10 beers) Patient reports that he drinks alcohol. Tobacco Use: Patient reports that he has never smoked. He has never used smokeless tobacco. Street Drug Use: Patient reports that he does not use drugs. Allergies: Patient has no known allergies. Medications: Prior to Admission medications Medication Sig Start Date End Date Taking? Authorizing Provider aspirin 81 MG EC tablet Take 81 mg by mouth daily . Yes Historical Provider, atorvastatin (LIPITOR) 10 MG tablet Take 1 tablet by mouth daily . 11/11/07 Yes Historical Provider, multivitamin (THERAGRAN) per tablet Take 1 tablet by mouth daily . Yes Historical Provider, OBJECTIVE: Physical Examination: BP 131/82 Pulse (!) 56 Ht 5' 6 Wt 80.7 kg (178 lb) BMI 28.73 kg/m REEVES: DNFC: Does Not Follow Commands YUMIKO: Unable to Assess GENERAL: General Appearance: In NAD Eyes: See pupils below Ears: See hearing below Neck: Supple Respiratory Effort: Normal Extremities: No edema Skin: No rashes visualized Fundi Exam: Normal, no papilledema MENTAL STATUS: Alertness, Attention Span & Concentration: Normal Language: Normal Speech: Normal Orientation: Normal Memory, Recent & Remote: Normal Fund of Knowledge: Normal CRANIAL NERVES: II - Visual Stock: Normal II, III - Pupils: PERRL III, IV, - Eye Movements: Normal (EOMI, no ptosis, no nystagmus) V - Facial Sensation: Normal VII - Face Symmetry and Strength: Normal VIII - Hearing: Normal IX, X - Palate: Normal XI - Shoulder Shrug: Normal XII - Tongue Protrusion: Normal GAIT: Normal Gait Aid Used During Exam: None Gait Assistance Required During Exam: None STANCE: Normal COORDINATION & GROSS MOTOR: Abnormal Movements: None Coordination Uhnnql-he-Ktwb: Normal Coordination: Aqtf-Xogn-Lqgm:Normal Rapid Alternating Movements: Normal Drift: None Tone: Normal Bulk: Normal MOTOR - MUSCLE STRENGTH: Muscle Strength Right Left 5 Shoulder Abduction (Deltoid) 5 5 Elbow Flexion (Biceps) 5 5 Elbow Extension (Triceps) 5 5 Wrist Flexion 5 5 Wrist Extension 5 5 Finger Flexion 5 5 Finger Extension 5 5 Finger Abduction (interossei) 5 5 Thumb Abduction 5 5 Hip Flexion (Iliopsoas) 5 5 Knee Extension (Quads) 5 5 Knee Flexion (Hamstrings) 5 5 Dorsiflexion (Anterior Tibialis) 5 5 Plantar-Flexion (Gastrocnemius) 5 MOTOR REEVES: 5 Normal (Normal Power) 4 Mild Weakness (Movement against moderate resistance over a full range of motion) 3 Moderate Weakness (Movement against gravity over almost full range of motion) 2 Severe Weakness (Movement with gravity eliminated over almost full range of motion) 1 Trace Movement (flicker of contraction visible or palpable) 0 No Movement (No contraction visible or palpable) YUMIKO Unable to Assess REFLEXES: Right Reflexes Left 2+ Biceps 2+ 2+ Triceps 2+ 2+ Brachioradialis 2+ 2+ Patellar 2+ 2+ Achilles 2+ Down Plantar Response (Babinski) Down REFLEXES REEVES: 4+ Sustained Clonus 3+ Brisk 2+ Normal 1+ Diminished 0 Absent YUMIKO Unable to Assess SENSATION: Fine Touch: Normal Pinprick: Normal Temperature: Normal Proprioception: Normal Vibration: Normal When testing pin prick on his back he notes significant increase in pain bilaterally from ~T2 leveldown documented in this encounter* Bassam Buenrostro MD - 01/20/2019 1:15 PM EDT [facility] [address] [place] [address] Nerve Conduction & EMG Report Patient: Patricio Silverman Sex: Male Date of : 1975 Visit Date: 01/20/2019 12:08 Age: 43 Years 8 Months Old Examining MD: Bassam Buenrostro MD, ABPN Referred by: Marya Connell MD Temperature: RUE: 32.0 C RLE: 31.2 C Tech: Serina Menjivar Referred for: Back paresthesias Impression: Extensive electrodiagnostic examination of the right upper and lower extremity reveals the followin. Right median mononeuropathy at or distal to the wrist (carpal tunnel syndrome), severe in degreeelectrically. 2. There is no evidence of a generalized large fiber peripheral polyneuropathy. 3. There is no evidence of a right ulnar/radial neuropathy. 4. There is no evidence of a peripheral mononeuropathy affecting the right lower extremity. 5. There is no evidence of a right cervical or lumbosacral motor radiculopathy. Bassam Buenrostro MD, ABPN Summary: Absent right median sensory response with reduced right median motor amplitude and marked prolongation of the motor latency. Motor NCS Nerve / Sites Muscle Latency Amplitude Distance Velocity ms mV cm m/s R Median - APB Wrist APB 8.02 3.5 Elbow APB 12.97 3.2 25 50.5 R Ulnar - ADM Wrist ADM 2.55 9.5 B.Elbow ADM 6.51 9.3 24 60.6 A.Elbow ADM 8.02 8.9 9 59.6 R Deep peroneal (Fibular) - EDB Ankle EDB 3.49 9.0 Fib Head EDB 10.63 8.7 33 46.2 Knee EDB 12.29 8.8 8 48.0 R Tibial - AH Ankle AH 3.28 11.8 Knee AH 11.51 7.4 38 46.2 Sensory NCS Nerve / Sites Rec. Site Onset Lat Peak Amp Distance Velocity ms ms V cm m/s R Median - Digit II Wrist Dig II NR NR NR 13 NR R Ulnar - Digit V Wrist Dig V 2.14 2.81 21.9 11 52 R Radial - Snuff Forearm Snuff 1.82 2.55 32.7 10 55 R Sural - Lat Mall Calf Lat Mall 2.45 3.23 21.3 14 57 R Superficial peroneal - Ankle Lat leg Ankle 2.55 3.44 16.0 12 47 R Medial plantar, Lateral plantar - Ankle (Medial, lateral sole) Medial plantar Sole Ankle 2.08 2.86 15.4 14 67 EMG Summary Table Spontaneous Activity Recruitment Activation Duration Amplitude Polyphasia Comment Muscle Ins Act Fib Fasc - - - - - - R. Extensor digitorum brevis Normal 0 0 Normal Normal Normal Normal Normal Normal R. Abductor hallucis Normal 0 0 Normal Fair N/1+ N/1+ Normal Normal R. Flexor digitorum longus Normal 0 0 Normal Fair Normal Normal Normal Normal R. Gastrocnemius (Medial head) Normal 0 0 Normal Fair Normal Normal Normal Normal R. Tibialis anterior Normal 0 0 Normal Normal Normal Normal Normal Normal R. Rectus femoris Normal 0 0 Normal Fair Normal Normal Normal Normal R. Gluteus medius Normal 0 0 Normal Normal Normal Normal Normal Normal R. First dorsal interosseous Normal 0 0 Normal Normal Normal Normal Normal Normal R. Abductor pollicis brevis Normal 0 0 Normal Fair Normal Normal Normal Normal R. Extensor indicis proprius Normal 0 0 Normal Normal Normal Normal Normal Normal R. Pronator teres Normal 0 0 Normal Normal Normal Normal Normal Normal R. Biceps brachii Normal 0 0 Normal Normal Normal Normal Normal Normal R. Triceps brachii Normal 0 0 Normal Fair Normal Normal Normal Normal R. Deltoid Normal 0 0 Normal Normal Normal Normal Normal Normal documented in this encounter Summary Purpose Family History No Family History Records FoundNo Family History Records FoundNo Family History Records FoundNo Family History Records FoundNo Family History Records FoundNo Family History Records Found Chief Complaint and Reason for Visit Chief Complaint EORDER Additional Source Comments Reason for Visit (unrecogniz ed section and content) Status Reason Specialty Diagnoses / Procedures Referre d By Contact Referred To Contact Closed Radiology Diagnoses Numbness and tingling Procedures MR Cervical Spine With And Without Contrast Marya Connell MD [address] [place] [address] Status Reason Specialty Diagnoses / Procedures Referred By Contact Referred To Contact Closed Neurology Diagnoses Numbness and tingling Sandra Sal MD [address] [facility] [address] [place] [address] Marya Connell MD [address] [place] [address] Status Reason Specialty Diagnoses / Procedures Referre d By Contact Referred To Contact Closed Radiology Diagnoses Numbness and tingling Procedures MR Thoracic Spine With And Without Contrast Marya Connell MD [address] [place] [address] Status Reason Specialty Diagnoses / Procedures Referre d By Contact Referred To Contact Closed Neurology Diagnoses HNP (herniated nucleus pulposus), cervical Marya Connell MD [address] [place] [address] Bassam Buenrostro MD [address] [place] [address] Reason Comments Kidney Stones Reason Comments Refill Request Reason Comments right eye discomfort Reason Onset Date Comments Refill Request 12/08/2024 (unrecognized sect ion and content) No Status Records FoundNo Status Records FoundNo Status Records FoundNo Status Records FoundNo Status Records FoundNo Status Records Found INFORMATION SOURCE (unrecogn ized section and content) DATE CREATED AUTHOR 03/06/2019 [facility] DATE CREATED AUTHOR AUTHOR'S ORGANIZ ATION 03/06/2019 [facility] DATE CREATED AUTHOR AUTHOR'S ORGANIZ ATION 04/23/2021 [facility] DATE CREATED AUTHOR AUTHOR'S ORGANIZ ATION 04/23/2021 [facility] DATE CREATED AUTHOR AUTHOR'S ORGANIZ ATION 10/27/2022 [facility] DATE CREATED AUTHOR AUTHOR'S ORGANIZ ATION 01/07/2025 [facility] Source Comments (unrecognize d section and content) In the event this informatio n is protected by the Federal Confidentiality of Alcohol and Drug Abuse Patient Records regulations: The Federal rules restrict any use of the information to criminally investigate or prosecute any alcohol or drug abuse patient.[facility] the event this information is protected by the Federal Confidentiality of Alcohol and Drug Abuse Patient Records regulations: The Federal rules restrict any use of the information to criminally investigate or prosecute any alcohol or drug abuse patient.[facility] Hospital[facility] the event this information is protected by the Federal Confidentiality of Alcohol and Drug Abuse Patient Records regulations: The Federal rules restrict any use of the information to criminally investigate or prosecute any alcohol or drug abuse patient.[facility] Hospital[facility] the event this information is protected by the Federal Confidentiality of Alcohol and Drug Abuse Patient Records regulations: The Federal rules restrict any use of the information to criminally investigate or prosecute any alcohol or drug abuse patient.[facility] Care Teams (unrecognized sec tion and content) Collective Bargaining Specialist Relationship Specialty Start Date End Date Sandra Sal MD [address] [place] [address] PCP - General 09/07/08 Collective Bargaining Specialist Relationship Specialty Start Date End Date Sandra Sal MD [address] [place], [place] [id number] PCP - General 09/07/08 Team Status: Active Member Role Status Dates Dr. Jere Sal MD Family Provider Active Dr. Jere Sal MD Primary Care Provider Activ e Team Status: Inactive Member Role Status Dates Dr. Jere Sal MD Primary Care Provider, Attending Provider, Referring Provider Active Collective Bargaining Specialist Relationship Specialty Start Date End Date Sandra Sal MD [address] [place] [address] PCP - General 09/07/08 Team Status: Active Member Role Status Dates Dr. Sandra Sal MD Family Provider Active Dr. Sandra Sal MD Primary Care Provider Acti ve Team Status: Inactive Member Role Status Dates Dr. Sandra Sal MD Primary Care Provider Acti ve Start: November 30, 2024 End: November 30, 2024 Dr. Sandra Sal MD Attending Provider Active Start: November 30, 2024 End: November 30, 2024 Dr. Sandra Sal MD Referring Provider Active Start: November 30, 2024 End: November 30, 2024 Collective Bargaining Specialist Relationship Specialty Start Date End Date Sandra Sal MD [address] [place] [address] PCP - General 09/07/08 Goals (unrecognized section and content) Goals may be documented in a n alternate sectionGoals may be documented in an alternate sectionGoals may be documented in an alternate section FOR RECORDS PERTAINING TO PATIENTS WHO ARE OR HAVE BEEN ENROLLED IN A CHEMICAL DEPENDENCY/SUBSTANCEABUSE PROGRAM, SOME INFORMATION MAY BE OMITTED. This clinical summary was aggregated from multiple sources. Caution should be exercised in using it in the provision of clinical care. This summary normalizes information from multiple sources, and as a consequence, information in this document may materially change the coding, format and clinical context of patient data. In addition, data may be omitted in some cases. CLINICAL DECISIONS SHOULD BE BASED ON THE PRIMARY CLINICAL RECORDS. [facility]. provides no warranty or guarantee of the accuracy or completeness of information in this document.
--- OUTSIDE RECORDS SUMMARY | 2025-01-25 06:38 | XMS RPT_ITS | CCD ---
Author Organization 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 Sandra Sal MD Referring Provider Sandra Sal Attending Unavailable Sandra Sal Referring [...] by mouth daily . 0 Active omega 2-eqh-dmm-fish oil (FISH OIL) 100-160-1,000 mg cap (4 [...] on above: Take 2 tablets by mo [facility] twice daily. Completed/Discontinued Medications Medication Drug Class(es) [...] 11-30-2024 Anion gap [Moles/Vol] 10 mmol/L 11-24 [facility] BUN/creatinine ratioOrdered By: Sandra Sal on 11-30-2024 Urea nitrogen/Creatinine [Mass ratio] 16.5 mg/mg - [facility] Bilirubin, totalOrdered By: Sandra Sal on 11-30-2024 Bilirubin [Mass/Vol] 0.59 mg/dL 0.00-1.30 [facility] Calculated very low density lipoprotein (VLDL) cholesterol measurementOrdered By: Sandra Sal on 11-30-2024 Calculated very low density lipoprotein (VLDL) cholesterol measurement 18 mg/dL 5-40 [facility] Carbon dioxide, total [Moles /volume] in Central venous bloodOrdered By: Sandra Sal on 11-30-2024 CO2 [Moles/Vol] 26.8 mmol/L 21.0-32.0 [facility] Chloride assayOrdered By: Melva Sal on 11-30-2024 Chloride [Moles/Vol] 102 mmol/L 98-108 [facility] [place] Comprehensive Metabolic Prof ilon 11-30-2024 Albumin [Mass/Vol] 4.5 g/dL Normal 3.5-5.0 [facility] Comment on above: Order Comment: Order Date: 11/30/24 Order Info: [id number] - CMP Order Info: [id number] - LIPID Order Info: [id number] - PSA Performed By: #### L 500.4050, L501.9910, L500.4100 #### [facility] [address] [place], [place], [address] Albumin/Globulin [Mass ratio] 2.0 {ratio} Normal 0.9-2.4 [facility] Comment on above: Order Comment: Order Date: 11/30/24 Order Info: [id number] - CMP Order Info: [id number] - LIPID Order Info: [id number] - PSA Performed By: #### L 500.4050, L501.9910, L500.4100 #### [facility] [address] [place], [address] ALK PHOS 68 U/L Normal 40-129 [facility] Comment on above: Order Comment: Order Date: 11/30/24 Order Info: [id number] - CMP Order Info: [id number] - LIPID Order Info: [id number] - PSA Performed By: #### L 500.4050, L501.9910, L500.4100 #### [facility] [address] [place], [address] ALT [Catalytic activity/Vol] 18 U/L Normal <=46 [facility] Comment on above: Order Comment: Order Date: 11/30/24 Order Info: [id number] - CMP Order Info: - LIPID Order Info: [id number] - PSA Performed By: #### L 500.4050, L501.9910, L500.4100 #### [facility] [address] [place], [address] AST [Catalytic activity/Vol] 25 U/L Normal <=37 [facility] Comment on above: Order Comment: Order Date: 11/30/24 Order Info: [id number] - CMP Order Info: - LIPID Order Info: [id number] - PSA Performed By: #### L 500.4050, L501.9910, L500.4100 #### [facility] [address] [place], [address] Bilirubin [Mass/Vol] 0.59 mg/dL Normal 0.00-1.30 [facility] Comment on above: Order Comment: Order Date: 11/30/24 Order Info: [id number] - CMP Order Info: [id number] - LIPID Order Info: [id number] - PSA Performed By: #### L 500.4050, L501.9910, L500.4100 #### [facility] [address] [place], [address] BUN/CRE 16.5 RATIO Normal 10-20 [facility] Comment on above: Order Comment: Order Date: 11/30/24 Order Info: [id number] - CMP Order Info: - LIPID Order Info: [id number] - PSA Performed By: #### L 500.4050, L501.9910, L500.4100 #### [facility] [address] [place], [address] Calcium [Mass/Vol] 9.2 mg/dL Normal 7.6-11.0 [facility] Comment on above: Order Comment: Order Date: 11/30/24 Order Info: [id number] - CMP Order Info: [id number] - LIPID Order Info: [id number] - PSA Performed By: #### L 500.4050, L501.9910, L500.4100 #### [facility] [address] [place], [address] Chloride [Moles/Vol] 102 mmol/L Normal 98-108 [facility] Comment on above: Order Comment: Order Date: 11/30/24 Order Info: [id number]- - CMP Order Info: [id number] - LIPID Order Info: [id number] - PSA Performed By: #### L 500.4050, L501.9910, L500.4100 #### [facility] [address] [place], [address] CO2 [Moles/Vol] 26.8 mmol/L Normal 21.0-32.0 [facility] Comment on above: Order Comment: Order Date: 11/30/24 Order Info: [id number] - CMP Order Info: [id number] - LIPID Order Info: [id number] - PSA Performed By: #### L 500.4050, L501.9910, L500.4100 #### [facility] [address] [place], [address] Creatinine [Mass/Vol] 1.15 mg/dL Normal 0.70-1.20 [facility] Comment on above: Order Comment: Order Date: 11/30/24 Order Info: [id number] - CMP Order Info: [id number] - LIPID Order Info: [id number] - PSA Performed By: #### L 500.4050, L501.9910, L500.4100 #### [facility] [address] [place], [address] GAP 10 Normal 5-15 [facility] Comment on above: Order Comment: Order Date: 11/30/24 Order Info: [id number] - CMP Order Info: - LIPID Order Info: [id number] - PSA Performed By: #### L 500.4050, L501.9910, L500.4100 #### [facility] [address] [place], [address] GFR/1.73 sq M.predicted among non-blacks MDRD (S/P/Bld) [Vol rate/Area] 77 mL/min/{1.73_m2} Normal >60 [facility] Comment on above: Order Comment: Order Date: 11/30/24 Order Info: [id number] - CMP Order Info: - LIPID Order Info: [id number] - PSA Result Comment: mL/m in/1.73m2 CKD-EPI Creatinine Equation (2020) Performed By: #### L 500.4050, L501.9910, L500.4100 #### [facility] [address] [place], [address] Globulin (S) [Mass/Vol] 2.3 g/dL Normal 2.2-4.2 [facility] Comment on above: Order Comment: Order Date: 11/30/24 Order Info: [id number] - CMP Order Info: - LIPID Order Info: [id number] - PSA Performed By: #### L 500.4050, L501.9910, L500.4100 #### [facility] [address] [place], [address] Glucose [Mass/Vol] 107 mg/dL High 70-99 [facility] Comment on above: Order Comment: Order Date: 11/30/24 Order Info: [id number] - CMP Order Info: - LIPID Order Info: [id number] - PSA Performed By: #### L 500.4050, L501.9910, L500.4100 #### [facility] [address] [place], [address] Potassium [Moles/Vol] 4.3 mmol/L Normal 3.3-5.1 [facility] Comment on above: Order Comment: Order Date: 11/30/24 Order Info: [id number] - CMP Order Info: [id number] - LIPID Order Info: [id number] - PSA Performed By: #### L 500.4050, L501.9910, L500.4100 #### [facility] [address] [place], [address] Sodium [Moles/Vol] 139 mmol/L Normal 133-145 [facility] Comment on above: Order Comment: Order Date: 11/30/24 Order Info: [id number]- - CMP Order Info: [id number] - LIPID Order Info: [id number] - PSA Performed By: #### L 500.4050, L501.9910, L500.4100 #### [facility] [address] [place], [place], [address] T PROT 6.8 g/dL Normal 5.9-8.4 [facility] Comment on above: Order Comment: Order Date: 11/30/24 Order Info: [id number] - CMP Order Info: [id number] - LIPID Order Info: [id number] - PSA Performed By: #### L 500.4050, L501.9910, L500.4100 #### [facility] [address] [place], [address] Urea nitrogen [Mass/Vol] 19 mg/dL Normal 4-19 [facility] Comment on above: Order Comment: Order Date: 11/30/24 Order Info: [id number] - CMP Order Info: [id number] - LIPID Order Info: [id number] - PSA Performed By: #### L 500.4050, L501.9910, L500.4100 #### [facility] [address] [place], [address] Glomerular filtration rate ( GFR) estimation/1.73 sq m using serum, plasma, or whole bOrdered By: Sandra Sal on 11-30-2024 GFR/1.73 sq M.predicted among non-blacks MDRD (S/P/Bld) [Vol rate/Area] 77 mL/min/{1.73_m2} >60 [facility] Comment on above: mL/min/1.73m2 CKD-EP I Creatinine Equation (2020) LDL calc ser/plasOrdered By: Sandra Sal on 11-30-2024 Cholesterol in LDL [Mass/Vol] 126 mg/dL [facility] Comment on above: Jlwpksaqub=848-595 m g/dL & Higher Kpsb=127 mg/dL or greater Laboratory - Chemistry and C hemistry - challengeOrdered By: Sandra Sal on 11-30-2024 AST [Catalytic activity/Vol] 25 U/L <38 [facility] Lipid Profileon 11-30-2024 CHOL:HDL 3.85 Normal [facility] Comment on above: Order Comment: Order Date: 11/30/24 Order Info: [id number] - CMP Order Info: [id number] - LIPID Order Info: [id number] - PSA Performed By: #### L 500.4050, L501.9910, L500.4100 #### [facility] [address] [place], [address] Cholesterol [Mass/Vol] 194 mg/dL Normal <=200 [facility] Comment on above: Order Comment: Order Date: 11/30/24 Order Info: [id number] - CMP Order Info: [id number] - LIPID Order Info: [id number] - PSA Result Comment: Chol esterol level, Desirable <200 mg/dL Borderline high cholesterol 200-239 mg/dL High cholesterol >=240 mg/dL Recommendations of the NCEP Adult Treatment Panel for the following risk-cutoff thresholds for the [place] population. Performed By: #### L 500.4050, L501.9910, L500.4100 #### [facility] [address] [place], [address] Cholesterol in HDL [Mass/Vol] 50 mg/dL Normal [facility] Comment on above: Order Comment: Order Date: 11/30/24 Order Info: [id number] - CMP Order Info: [id number] - LIPID Order Info: [id number] - PSA Result Comment: Lu onal Cholesterol Education Program (NCEP) guidelines: <40 mg/dL: Low HDL-cholesterol (major risk factor for CHD) >= 60 mg/dL: High HDL-cholesterol (negative risk factor for CHD) HDL-cholesterol is affected by a number of factors, e.g. smoking, exercise, hormones, sex and age. Performed By: #### L 500.4050, L501.9910, L500.4100 #### [facility] [address] [place], [address] Cholesterol in LDL [Mass/Vol] 126 mg/dL Normal [facility] Comment on above: Order Comment: Order Date: 11/30/24 Order Info: [id number]- - CMP Order Info: [id number] - LIPID Order Info: [id number] - PSA Result Comment: Bord jolios=323-683 mg/dL Higher Fmot=767 mg/dL or greater Performed By: #### L 500.4050, L501.9910, L500.4100 #### [facility] [address] [place], [address] Cholesterol in VLDL [Mass/Vol] 18 mg/dL Normal 5-40 [facility] Comment on above: Order Comment: Order Date: 11/30/24 Order Info: [id number] - CMP Order Info: [id number] - LIPID Order Info: [id number] - PSA Performed By: #### L 500.4050, L501.9910, L500.4100 #### [facility] [address] [place], [address] Triglyceride [Mass/Vol] 90 mg/dL Normal [facility] Comment on above: Order Comment: Order Date: 11/30/24 Order Info: [id number] - CMP Order Info: [id number] - LIPID Order Info: [id number] - PSA Result Comment: The drugs N-Acetylcysteine and Metamizole may falsely depress this assay. Normal range: <150 mg/dL Borderline High: 150-199 mg/dL High: 200-499 mg/dL Very High: >500 mg/dL Performed By: #### L 500.4050, L501.9910, L500.4100 #### [facility] [address] [place], [address] PSA,Total - Annual Screenon 11-30-2024 PSA,TOT SCREEN 0.48 ng/mL Normal 0.02-4.00 [facility] Comment on above: Order Comment: Order Date: 11/30/24 Order Info: [id number] - CMP Order Info: [id number] - LIPID Order Info: [id number] - PSA [...] By: #### L 500.4050, L501.9910, L500.4100 #### [facility] [address] [place], [address] Potassium measurement (mass/ volume)Ordered By: Sandra Sal on 11-30-2024 Potassium (Unsp spec) [Mass/Vol] 4.3 mmol/L 3.3-5.1 [facility] Screening total cholesterol/ high density lipoprotein (HDL) cholesterol ratioOrdered By: Sandra Sal on 11-30-2024 Cholesterol.total/Choles terol in HDL [Mass ratio] 3.85 {ratio} [facility] Serum creatinine measurement (mass/volume)Ordered By: Sandra Sal on 11-30-2024 Creatinine [Mass/Vol] 1.15 mg/dL 0.70-1.20 [facility] Serum globulin measurementOr dered By: Sandra Sal on 11-30-2024 Globulin (S) [Mass/Vol] 2.3 g/dL 2.2-4.2 [facility] Serum glucose measurement (m ass/volume)Ordered By: Sandra Sal on 11-30-2024 Glucose [Mass/Vol] 107 mg/dL High 70-99 [facility] Serum or plasma alanine bailey otransferase (ALT) measurementOrdered By: Sandra Sal on 11-30-2024 ALT [Catalytic activity/Vol] 18 U/L <47 [facility] Serum or plasma albumin traci urement (mass/volume)Ordered By: Sandra Sal on 11-30-2024 Albumin [Mass/Vol] 4.5 g/dL 3.5-5.0 [facility] Serum or plasma albumin/glob ulin mass ratioOrdered By: [facility] Sal on 11-30-2024 Albumin/Globulin [Mass ratio] 2.0 {ratio} 0.9-2.4 [facility] Serum or plasma alkaline bertha sphatase measurementOrdered By: Sandra Sal on 11-30-2024 ALP [Catalytic activity/Vol] 68 U/L 40-129 [facility] Serum or plasma calcium traci urement (mass/volume)Ordered By: Sandra Sal on 11-30-2024 Calcium [Mass/Vol] 9.2 mg/dL 7.6-11.0 [facility] Serum or plasma cholesterol in HDL measurement (mass/volume)Ordered By: Sandra Sal on 11-30-2024 Cholesterol in HDL [Mass/Vol] 50 mg/dL >40 [facility] Comment on above: National Cholesterol Education Program (NCEP) guidelines:<40 mg/dL: Low HDL-cholesterol (major risk factor for CHD)>= 60 mg/dL: High HDL-cholesterol (negative risk factor for CHD)HDL-cholesterol is affected by a number of factors, e.g. smoking, exercise, hormones, sex and age. Serum or plasma cholesterol measurement (mass/volume)Ordered By: Sandra Sal on 11-30-2024 Cholesterol [Mass/Vol] 194 mg/dL <201 [facility] Comment on above: Cholesterol level, D esirable <200 mg/dLBorderline high cholesterol 200-239 mg/dLHigh cholesterol >=240 mg/dLRecommendations of the NCEP Adult Treatment Panel for the following risk-cutoff thresholds for the [place] population. Serum or plasma urea nitroge n measurement (mass/volume)Ordered By: Sandra Sal on 11-30-2024 Urea nitrogen [Mass/Vol] 19 mg/dL 4-19 [facility] Sodium levelOrdered By: Adityakaden baird Doron on 11-30-2024 Sodium [Moles/Vol] 139 mmol/L 133-145 [facility] Total proteinOrdered By: Aditya monalisa Doron on 11-30-2024 Protein [Mass/Vol] 6.8 g/dL 5.9-8.4 [facility] Triglycerides measurementOrd ered By: Sandra Sal on 11-30-2024 Triglyceride [Mass/Vol] 90 mg/dL <199 [facility] Comment on above: The drugs N-Acetylcy steine and Metamizole may falsely depress this assay. Normal range: <150 mg/dLBorderline High: 150-199 mg/dLHigh: 200-499 mg/dLVery High: >500 mg/dL Basophil percentageOrdered B y: Jere Sal on 02-02-2023 Bilirubin [Mass/Vol] 1.00 mg/dL 0.20-1.00 [facility] Comment on above: For patients on eltr ombopag therapy, use of Dimension [place] TBIL is not recommended. Chloride [Moles/Vol] 107 mmol/L 98-107 [facility] Cholesterol [Mass/Vol] 262 mg/dL <200 [facility] Comment on above: <200 mg/dL Desirable 200-240 mg/dL Borderline >240 mg/dL High Risk Glucose [Mass/Vol] 110 mg/dL 74-106 [facility] Comment on above: Fasting Glucose resu lt from 100 to 125 mg/dL suggests IMPAIRED HOMEOSTASIS per A.D.A. criteria. Potassium [Moles/Vol] 4.2 mmol/L 3.5-5.1 [facility] Protein [Mass/Vol] 7.0 g/dL 6.4-8.2 [facility] Sodium [Moles/Vol] 140 mmol/L 136-145 [facility] Triglyceride [Mass/Vol] 100 mg/dL <199 [facility] Comment on above: The drugs N-Acetylcy steine and Metamizole may falsely depress this assay.Serum Triglycerides Reference Interval Normal <150 mg/dL Borderline high 150 - 199 mg/dL High 200 - 499 mg/dL Very High > or = 500 mg/dL Laboratory - Chemistry and C hemistry - challengeOrdered By: Jere Sal on 02-02-2023 ALP [Catalytic activity/Vol] 64 U/L 45-117 [facility] ALT [Catalytic activity/Vol] 21 U/L 16-61 [facility] CO2 [Moles/Vol] 30.0 mmol/L 21.0-32.0 [facility] Globulin (S) [Mass/Vol] 3.2 g/dL 2.2-4.2 [facility] Urea nitrogen/Creatinine [Mass ratio] 13.8 mg/mg 10-20 [facility] No Panel InformationOrdered By: Jere Sal on 02-02-2023 Estimated GFR (MDRD) Amer 75 mL/min >60 [facility] Comment on above: GFR Calc Estimated GFR (MDRD) Non-Af Amer 62 mL/min >60 [facility] Comment on above: Non- GFR Calc Serum or plasma albumin traci urement (mass/volume)Ordered By: Jere Sal on 02-02-2023 Albumin [Mass/Vol] 3.8 g/dL 3.2-5.0 [facility] Serum or plasma albumin/glob ulin mass ratioOrdered By: Jere Sal on 02-02-2023 Albumin/Globulin [Mass ratio] 1.2 {ratio} 0.9-2.4 [facility] Serum or plasma calcium traci urement (mass/volume)Ordered By: Jere Sal on 02-02-2023 Calcium [Mass/Vol] 8.9 mg/dL 8.5-10.1 [facility] Serum or plasma cholesterol in HDL measurement (mass/volume)Ordered By: Jere Sal on 02-02-2023 Cholesterol in HDL [Mass/Vol] 57 mg/dL >40 [facility] Comment on above: The drugs N-Acetylcy steine and Metamizole may falsely depress this assay. Reference Range HDL <40 mg/dL Low HDL Cholesterol HDL >or= 60 mg/dL High HDL Cholesterol Serum or plasma cholesterol in VLDL measurement (mass/volume)Ordered By: Jere Sal on 02-02-2023 Cholesterol in VLDL [Mass/Vol] 20 mg/dL 5-40 [facility] Serum or plasma creatinine m easurement (mass/volume)Ordered By: Jere Sal on 02-02-2023 Creatinine [Mass/Vol] 1.30 mg/dL 0.70-1.30 [facility] Comment on above: The validity of the calculated GFR & GFRAA in patients over 70 years has not been determined. Clinical correlation is essential. Serum or plasma low density lipoprotein (LDL) cholesterol measurement (mass/volume)Ordered By: Jere Sal on 02-02-2023 Cholesterol in LDL [Mass/Vol] 185 mg/dL 0-130 [facility] Serum or plasma urea nitroge n measurement (mass/volume)Ordered By: Jere Sal on 02-02-2023 Urea nitrogen [Mass/Vol] 18 mg/dL 7-18 [facility] Thin prep Papanicolaou smear with manual screeningOrdered By: Jere Sal on 02-02-2023 Thin prep Papanicolaou smear with manual screening 19 U/L 15-37 [facility] Thin prep Papanicolaou smear with manual screening 3 5-15 [facility] Culture, urineOrdered By: Dr Victorino Sal on 12-21-2022 Bacteria identified Cx Nom (U) Culture exhibits no growth. [facility] Basophil percentageOrdered B y: Dr. Sal on 12-18-2022 Basophil percentage 0 SEEN /hpf 0-5 [facility] Bilirubin Test strip Ql (U)O rdered By: Dr. Sal on 12-18-2022 Bilirubin Ql (U) Negative Negative [facility] Culture, urineOrdered By: Melva Sal on 12-18-2022 Bacteria identified Cx Nom (U) Culture exhibits no growth. [facility] Ketones Test strip Ql (U)Ord ered By: Dr. Sal on 12-18-2022 Ketones Ql (U) Negative Negative [facility] Mucus LM Ql (Urine sed)Order ed By: Dr. Sal on 12-18-2022 Mucus Ql (Urine sed) 0 SEEN /hpf [facility] Nitrite Test strip Ql (U)Ord ered By: Dr. Sal on 12-18-2022 Nitrite Ql (U) Negative Negative [facility] Protein Test strip Ql (U)Ord ered By: Dr. Sal on 12-18-2022 Protein Ql (U) Negative Negative [facility] Squamous epithelial cells de tection in urine sediment by light microscopyOrdered By: Dr. Sal on 12-18-2022 Epithelial cells.squamous LM Ql (Urine sed) 0 SEEN /hpf 0-5 [facility] Urine blood detectionOrdered By: Dr. Sal on 12-18-2022 RBC Ql (U) Negative Negative [facility] RBC Ql (U) 0 SEEN /hpf 0-5 [facility] Urine clarityOrdered By: Dr. Sal on 12-18-2022 Clarity (U) Clear Clear [facility] Urine color determinationOrd ered By: Dr. Sal on 12-18-2022 Color (U) Yellow Yellow [facility] Urine glucose detectionOrder ed By: Dr. Sal on 12-18-2022 Glucose Ql (U) Normal mg/dl Normal [facility] Urine leukocyte esterase det ection by dipstickOrdered By: Dr. Sal on 12-18-2022 Leukocyte esterase Test strip Ql (U) Negative Negative [facility] Urine pHOrdered By: Dr. Indira hernandez on 12-18-2022 pH (U) 8.0 [pH] 5.0 - 8.0 [facility] Urine sediment bacteria coun t by microscopy (number/high power field)Ordered By: Dr. Sal on 12-18-2022 Bacteria LM.HPF (Urine sed) [#/Area] 0 /[HPF] None Seen [facility] Urine specific gravity measu rementOrdered By: Dr. Sal on 12-18-2022 Specific gravity (U) [Rel density] 1.010 1.002-1.030 [facility] Urobilinogen Auto test strip Ql (U)Ordered By: Dr. Sal on 12-18-2022 Urobilinogen Ql (U) Normal mg/dl Normal [facility] CNOVon 10-22-2022 CNOV Office Visit (URHWST ) STACEY JARQUIN ([id number]) 1975 M Date Time Provider Department 10/22/22 [...] (no units) Date Value 08/05/2020 Negative Specific [facility], [facility] (no units) Date Value 08/05/2020 1.025 [...] ORAL) Take by mouth once daily. omega 4-laj-cet-fish oil (FISH OIL) 100-160-1,000 mg cap Take [...] MEQ (1,080 MG) TABLET,EXTENDED RELEASE Aidan Freire APRN.METALLURGICAL ANALYST Allergies As of Date: 10/22/2022 (No Known Allergies) Date Reviewed: 10/22/2022 Reviewed by: Gisele Husain, JADON - Fully Assessed Reason for Visit: Kidney Stones [86232] Primary Visit Diagnosis:Left flank pain [R10.9] Other Visit Diagnosis:Kidney stone [N20.0] Order(s):UA DIP, URINE (POC) [2888361] Order #: [id number]. #:[id number] potassium citrate ER (UROCIT- (more content not included)... Normal [facility] UA DIP, URINE (POC)on 2022 BILIRUBIN UA (POCT) Negative Negative [facility] CLARITY UA (POCT) Clear [facility] COLOR UA (POCT) Yellow [facility] GLUCOSE UA (POCT) Negative Negative mg/dL [facility] HEMOGLOBIN/BLOOD UA (POCT) Negative Negative [facility] KETONE UA (POCT) Negative Negative mg/dL [facility] LEUKOCYTES UA (POCT) Negative Negative [facility] NITRITE UA (POCT) Negative Negative [facility] PH UA (POCT) 6.5 4.5 - 8.0 [facility] Protein Ql (U) Negative Negative mg/dL [facility] SPECIFIC GRAVITY UA (POCT) <=1.005 Abnormal 1.005 - 1.030 [facility] UROBILINOGEN UA (POCT) 0.2 E.U./dL Breanna l E.U./dL [facility] XR ABDOMEN 1V SUPINEon 10-22 XR ABDOMEN [...] abnormality. IMPRESSION: No radiographic evidence of nephrolithiasis. Cardiology Physician: YANNA Transcribe Date/Time: Oct 24 2022 7:59A Dictated by : KATHY OBANDO MD This examination was interpreted and the report reviewed and electronically signed by: KATHY OBANDO MD on Oct 24 2022 8:02AM EST [id number] Normal [facility] CNOVon 04-25-2022 CNOV Office Visit (AKURFL ) STACEY JARQUIN ([id number]) 1975 M Date Time Provider Department 04/25/22 8:45 AM REGAN ALVARADO During your visit today, we recorded the following information about you: Respiration Blood pressure Weight Height 18/minute 125/75 76.2 kg 1.676 m Regan Alvarado MD 04/25/2022 9:42 AM Signed ESTABLISHED PATIENT OFFICE VISIT PATIENT INFO: Stacey [...] mm left lower pole calculus April 04, [id number] 2.1 L; calcium-313; citrate-515 April 22, 2021-KUB-3-4 [...] (no units) Date Value 08/05/2020 Negative Specific Mcbee, Ur (no units) Date Value 08/05/2020 1.025 [...] Psychiatric/Behavioral : (more content not included)... Normal [facility] UA DIP, URINE (POC)on 2021 BILIRUBIN UA (POCT) Negative Negative [facility] CLARITY UA (POCT) [facility] COLOR UA (POCT) Yellow [facility] GLUCOSE UA (POCT) Negative Negative mg/dL [facility] HEMOGLOBIN/BLOOD UA (POCT) Negative Negative [facility] KETONE UA (POCT) Negative Negative mg/dL [facility] LEUKOCYTES UA (POCT) Negative Negative [facility] NITRITE UA (POCT) Negative Negative [facility] PH UA (POCT) 7.5 4.5 - 8.0 [facility] Protein Ql (U) Negative Negative mg/dL [facility] SPECIFIC GRAVITY UA (POCT) 1.015 1.005 - 1.030 [facility] UROBILINOGEN UA (POCT) 0.2 E.U./dL Breanna l E.U./dL [facility] XR ABDOMEN 1V SUPINEon 04-22 XR ABDOMEN [...] abnormality. IMPRESSION: 4 mm left renal calculus. Cardiology Physician: YANNA Transcribe Date/Time: Apr 22 2021 12:49P Dictated by : ALINA FUENTES MD This examination was interpreted and the report reviewed and electronically signed by: ALINA FUENTES MD on Apr 22 2021 12:57PM EST [id number] [facility] XR RETROGRADE PYELOGRAM RTon 08-29-2020 XR [...] films for treatment of right ureteral stone. [facility]iology Phys[facility] Transcribe Date/Time: Aug 29 2020 2:20P Dictated by : MARYCHUY SAEED MD This examination was interpreted and the report reviewed and electronically signed by: MARYCHUY SAEED MD on Aug 29 2020 2:22PM EST Normal [facility] CT ABD/PEL WO IVCONon 2020 CT ABD/PEL WO IVCON Final Report DATE OF EXAM: Aug 05 2020 3:04PM [facility] 0531 - CT ABD/PEL WO IVCON / [...] consistent with a history of Covid positivity. Glass Checker (topogram) images: No additional findings. IMPRESSION: 7 x 9 mm obstructing calculus proximal right ureter. Mild right hydronephrosis. Bilateral nonobstructing kidney stones. Patchy consolidative infiltrates lung base regions bilaterally more pronounced on the right than on the left. Cardiology Physician: YANNA Transcribe Date/Time: Aug 05 2020 3:15P Dictated by : ARIS KOCH MD This examination was interpreted and the report reviewed and electronically signed by: ARIS KOCH MD on Aug 05 2020 3:21PM EST Normal [facility] MR CERVICAL SPINE WITH AND W ITHOUT [...] ThuJan 07, 2019 4:47:04 PM EDT Normal [facility] Comment on above: Order Comment: Must be [...] with a nonemergent contrast-enhanced liver protocol MRI. [facility]/cdr Workstation ID: Unknown Dictated by: AMY SIMENTAL on ThuJan 07, 2019 12:18:10 PM EDT Transcribed by: LENORA DOCKERY on ThuJan 07, 2019 12:50:11 PM EDT Finalized by: AMY SIMENTAL on ThuJan 07, 2019 3:25:23 PM EDT [facility] Comment on above: Order Comment: Must be on a 3 T[employer]a MRI machine per [place] Protocol Injury/Trauma or Illness?:Illness/Other How long have you had these symptoms (acute/chronic)?:Chronic Reason for exam?:numbness and tingling Type of Exam?:Initial Additional signs and symptoms?:. Vital Signs Date Time Vital Sign Value Performing Clinician Facility 10-15-2024 17:03-0400 Body temperature 97.7 [degF] Chris Capo PA-C Work Phone: [facility] 10-15-2024 17:03-0400 Body weight 77.11 kg Chris Capo PA-C Work Phone: [facility] 10-15-2024 17:03-0400 Diastolic blood pressure 79 mm[Hg] Chris Capo PA-C Work Phone: [facility] 10-15-2024 17:03-0400 Heart rate 57 /min Chris Capo PA-C Work Phone: [facility] 10-15-2024 17:03-0400 Respiratory rate 16 /min Chris Capo PA-C Work Phone: [facility] 10-15-2024 17:03-0400 SaO2% (BldA) [Mass fraction] 97 % Chris Capo PA-C Work Phone: [facility] 10-15-2024 17:03-0400 Systolic blood pressure 130 mm[Hg] Chris Capo PA-C Work Phone: [facility] 10-22-2022 09:09-0400 Body height 167.6 cm Aidan Freire APRN.METALLURGICAL ANALYST Work Phone: [facility] 10-22-2022 09:09-0400 Body weight 77.11 kg Aidan Freire APRN.METALLURGICAL ANALYST Work Phone: [facility] 10-22-2022 09:09-0400 Diastolic blood pressure 80 mm[Hg] Aidan Freire APRN.METALLURGICAL ANALYST Work Phone: [facility] 10-22-2022 09:09-0400 Systolic blood pressure 120 mm[Hg] Aidan Freire MIREYA Work Phone: [facility] 04-25-2022 08:42-0400 Body height 167.6 cm Regan Alvarado MD Work Phone: [facility] 04-25-2022 08:42-0400 Body weight 76.2 kg Regan Alvarado MD Work Phone: [facility] 04-25-2022 08:42-0400 Diastolic blood pressure 75 mm[Hg] Regan Alvarado MD Work Phone: [facility] 04-25-2022 08:42-0400 Respiratory rate 18 /min Regan Alvarado MD Work Phone: [facility] 04-25-2022 08:42-0400 Systolic blood pressure 125 mm[Hg] Regan Alvarado MD Work Phone: [facility] 01-20-2019 07:46-0400 BMI (Body Mass Index) 28.73 kg/m2 [facility] 01-20-2019 07:46-0400 Body weight 80.74 kg [facility] 01-20-2019 07:46-0400 BP Diastolic 82 mm[Hg] [facility] 01-20-2019 07:46-0400 BP Systolic 131 mm[Hg] [facility] 01-20-2019 07:46-0400 Height 167.6 cm [facility] 01-20-2019 07:46-0400 Pulse (Heart Rate) 56 /min [facility] 01-06-2019 16:52-0400 BMI (Body Mass Index) 27.41 kg/m2 [facility] 01-06-2019 16:52-0400 Body weight 79.38 kg [facility] 01-06-2019 16:52-0400 Height 170.2 cm Marya [facility] Encounters Encounter Date Encounter Type Care Provider Facility Start: 01-25-2025 ambulatory Sandra [facility] Start: 12-08-2024 End: 12-08-2024 Refill Regan Alvarado MD Work Phone: [facility] Comment on above: Refill Request Start: 11-30-2024 End: 11-30-[address] Sandra Sal MD Work Phone: [facility] Work Phone: Start: 11-30-2024 End: 11-30-[address] Sandra Sal MD -Laboratory [facility] Start: 11-30-2024 End: 11-30-2024 ambulatory Sandra Sal Facility:[facility] Start: 10-15-2024 End: 10-15-2024 Office outpatient visit 25 minutes Chris Scanlon PA-C Work Phone: [facility] Comment on above: Discomfort of right eye (Primary Dx) Start: 12-10-2023 Refill Aidan Jenkins APRN.METALLURGICAL ANALYST Work Phone: Urology Comment on above: Refill Request Start: 02-02-2023 End: 02-02-2023 ambulatory [facility] Work Phone: Start: 02-02-2023 End: 02-02-2023 Patient encounter procedure [facility] Work Phone: Start: 12-18-2022 End: 12-18-2022 ambulatory [facility] Work Phone: Start: 12-18-2022 End: 12-18-2022 Patient encounter procedure [facility]-Laboratory, Specimen Start: 10-22-2022 End: 10-22-2022 ambulatory AIDAN FREIRE Facility:[facility] Start: 10-22-2022 End: 10-22-2022 Patient encounter procedure Aidan Freire GRAVITY PROSPECTING OPERATOR.METALLURGICAL ANALYST Work Phone: Urology Comment on above: Left flank pain (Thao margarette Dx); Kidney stone Start: 04-25-2022 End: 04-25-2022 ambulatory REGAN ALVARADO Facility:[facility] Start: 04-25-2022 End: 10-14-2022 Patient encounter procedure Regan Alvarado MD Work Phone: [facility] Comment on above: Kidney stone (Primar y Dx) Start: 01-20-2019 End: 01-20-2019 Patient encounter procedure MARYA CONNELL [facility] Start: 01-20-2019 End: 01-20-2019 Patient encounter procedure Maryafrances Li Ayo Work Phone: [facility] Comment on above: Carpal tunnel syndro me on right (Primary Dx); HNP (herniated nucleus pulposus), cervical; Paresthesia Start: 01-20-2019 End: 01-20-2019 Patient encounter procedure [place] BRISSA [facility] Start: 01-20-2019 End: 01-20-2019 Office outpatient new 60 minutes Sandra Sal Work Phone: [facility] Comment on above: HNP (herniated nucle us pulposus), cervical (Primary Dx) Start: 01-06-2019 End: 01-07-2019 Patient encounter procedure MARYA CONNELL [facility] Start: 01-06-2019 End: 01-06-2019 Subsequent hospital visit by physician Marya Connell Work Phone: [facility] Comment on above: Numbness and tinglin [...] DTaP/Tdap/Td Vaccines (2 - Td or Tdap) [facility] Start: 06-13-2029 Urine microalbumin profile DTaP,Tdap,Td Vaccine (2 - Td or Tdap) [facility] Start: 03-13-2025 Influenza vaccination Influenz a Vaccine (Season Ended) [facility] Start: 03-13-2024 COVID-19 Vaccine () COVID-19 Vaccine () [facility] Start: 03-13-2024 Influenza vaccination Influenz a Vaccine (Season Ended) [facility] Start: 08-05-2023 DIABETES SCREEN DIABETES SCREEN [facility] Start: 08-05-2023 Diabetes Screening Diabetes Screenin g [facility] Start: 07-13-2023 Behavioral Health Screening Behavioral Health Screening [facility] Start: 2023 Pneumococcal vaccination Pneumococcal Vaccine (1 of 1 - PCV) [facility] Start: 2023 Pneumococcal Vaccine : 50+ (1 of 1 - PCV) Pneumococcal Vaccine: 50+ (1 of 1 - PCV) [facility] Start: 2023 Shingrix Vaccine (1 of 2) Shingrix Vaccine (1 of 2) [facility] Start: 2023 Zoster Vaccines (1 o f 2) Zoster Vaccines (1 of 2) [facility] Start: 04-25-2023 End: 05-25-2023 XR ABDOMEN 1V SUPINE XR ABDOMEN 1V SUPINE Radiology Routine Kidney stone Expected: 04/25/2023, Expires: 05/25/2023 [facility] Work Phone: Comment on above: Expected: 04/25/2023 , Expires: 05/25/2023 Start: 03-13-2023 Covid-19 Vaccine () Covid-19 Vaccine () [facility] Start: 03-13-2023 Influenza vaccination INFLUENZ A (Season Ended) [facility] Start: 07-13-2022 [facility]PRESSION [facility]ESSMENT [facility] Start: 03-13-2022 Influenza vaccination INFLUENZA (#1) [facility] Start: 10-08-2021 COVID-19 VACCINE (4 - Booster for Moderna series) COVID-19 VACCINE (4 - Booster for Moderna series) [facility] Start: 07-13-2021 DEPRESSION ASSESSMENT [facility] Start: 03-13-2019 Influenza vaccinatio n given [facility] Start: 01-20-2019 End: 01-20-2019 Office Visit [facility] Start: 2018 COLOGUARD (FIT-DNA) COLOGUARD (FIT-D NA) [facility] Start: 2018 Colonoscopy COLONOSCOPY [facility] Start: 2018 COLORECTAL CANCER SCREENING COLORECTAL CANCER SCREENING [facility] Start: [address] COLONOGRAPHY [facility] Start: 2018 FECAL OCCULT BLOOD FECAL OCCULT BLOO D [facility] Start: 2018 Screening for malign ant neoplasm of colon [facility] Start: 2018 SIGMOIDOSCOPY SIGMOIDOSCOPY [facility] Start: 2008 Lipid panel Lipid Screening [facility] Start: 2008 LIPID SCREEN LIPID SCREEN [facility] Start: 1992 Hepatitis B Vaccine (1 of 3 - 19+ 3-dose series) Hepatitis B Vaccine (1 of 3 - 19+ 3-dose series) [facility] Start: 1992 Hepatitis B Vaccines (1 of 3 - 19+ 3-dose series) Hepatitis B Vaccines (1 of 3 - 19+ 3-dose series) [facility] Start: 1992 Urine microalbumin profile DTAP,TDAP,TD (1 - Tdap) [facility] Start: 1991 Anxiety Screening Anxiety Screening [facility] Start: 1991 Depression Screening Depression Scre ening [facility] Start: 1991 HEPATITIS C SCREENING HEPATITIS C [facility] Start: 1991 Hepatitis C screening Hepatitis C [facility] Start: 1991 HIV SCREENING HIV SCREENING [facility] Start: 1991 HIV screening HIV Screening [facility] Start: 1976 History and physical examination, annual for health maintenance Wellness Visit [facility] Start: 1974 MMR Vaccines (1 of 1 - Standard series) MMR Vaccines (1 of 1 - Standard series) [facility] Start: 1973 HEPATITIS B (1 of 3 - 3-dose series) HEPATITIS B (1 of 3 - 3-dose series) [facility] Start: 1973 HIV screening HIV Screening [facility] Start: 1973 Lipid panel Lipid Panel [facility] Start: 1973 Prostate specific antigen measurement PSA Level [facility] Start: 1973 Screening for malign ant neoplasm of colon [facility] Start: 1973 Tetanus vaccination TETANUS EVERY 10 YR [facility] Start: 1973 Yearly Adult Physical Yearly Adult P hysical [facility] End: 01-06-2019 MRI of cervical spine MR Cervical Spine With And Without Contrast Imaging Routine Numbness and tingling Once for 1 Occurrences starting 01/06/2019 until 01/06/2019 [facility] Comment on above: Once for 1 Occurrenc es starting 01/06/2019 until 01/06/2019 MRI of cervical spine MR Cervica l Spine With And Without Contrast Imaging Routine Numbness and tingling 01/06/2019 7:06 PM EDT [facility] End: 01-06-2019 MRI of thoracic spine MR Thoracic Spine With And Without Contrast Imaging Routine Numbness and tingling Once for 1 Occurrences starting 01/06/2019 until 01/06/2019 [facility] Comment on above: Once for 1 Occurrenc es starting 01/06/2019 until 01/06/2019 MRI of thoracic spine MR Thoraci c Spine With And Without Contrast Imaging Routine Numbness and tingling 01/06/2019 7:06 PM EDT [facility] End: 11-21-2023 XR ABDOMEN 1V SUPINE XR ABDOMEN 1V SUPINE Radiology Routine Kidney stone Left flank pain 1 Occurrences starting 10/22/2022 until 11/21/2023 [facility] Work Phone: Comment on above: 1 Occurrences starti ng 10/22/2022 until 11/21/2023 XR ABDOMEN 1V SUPINE XR ABDOMEN 1V SUPINE Radiology Routine Kidney stone Left flank pain 10/22/2022 9:47 AM EDT [facility] Work Phone: [facility] Immunizations Immunization Date Immunization Notes Care Provider Bea chong 06-10-2018 influenza virus vacc ine, unspecified formulation Aidan Jenkins APRN.CNP Work Phone: [facility] Payers Date Payer Category Payer Self-pay [id number] 2017 [facility] BLUE CARD PPO OOS [id number] 2017 [facility] Managed Care ANTHEM HMP [id number] 2017 Unknown ANTHEM BCBS OUT OF STATE [facility] xxxxxxxxxxxxxxx 2017-Present xxxxxxxxxxxxxxx [id number] 2017 Unknown ANTHEM BLUE CARD PPO OOS [id number] 2017- [phone] [id number] [place] [address] PPO [id number] 2016 Unknown [id number] 1975 Unknown [id number] 1975 Unknown [id number] 00 1975 Unknown [id number] 00 1975 Unknown [id number] 03 Unknown [id number] Unknown [id number] 62 Unknown [id number] Social History Date Type Detail Facility Tobacco smoking status HIIS Unknown if ever smoked [facility] Start: 1975 Sex Assigned At Not on file O [facility] Start: 01-20-2019 End: 04-25-2022 Tobacco smoking status HIIS Never smoker [facility] Start: 04-25-2022 End: 10-15-2024 Tobacco use and exposure Smokeless tobacco non-user [facility] Start: 04-25-2022 End: 10-22-2022 Alcohol intake Current drinker of alcohol (finding) [facility] Start: 08-22-2019 Alcohol Comment rarely [facility] Start: 1975 Sex Assigned At Male C [facility] Start: 04-15-2022 End: 04-25-2022 Exposure to SARS-CoV-2 (event) Not sure [facility] Start: 08-08-2022 End: 10-22-2022 History of Social function [facility] Start: 08-08-2022 End: 10-22-2022 Tobacco use panel [facility] National Score (1-100), lower number is lower risk 51 [facility] Start: 08-14-2020 Gender identity Identifies as male gender (finding) [facility] Tobacco smoking status NHIS Unknown if ever smoked [facility] Work Phone: Medical Equipment Procedure Code Equipment Code Equipment Origin al Text Equipment Identifier Dates Stent Inlay Opti ma 6fr Taper [place]a [place] Green Polymer Phreecoat 26cm [facility] - [id number] Start: 08-29-2020 Clinical Notes 04-22-2021 to [...] Visit date not found Patient Phone numbers: [phone] (home) Request is for script(s) to be escript to pharmacy. Michelle Benavidez MA [facility] 12-08-2024 Miscellaneous Notes Pharmacy faxed requesting the following refill. Requested Prescriptions Pending Prescriptions Disp Refills potassium citrate ER (UROCIT-K) 10 mEq (1,080 mg) 360 tablet 3 Sig: Take 2 tablets by mouth two times a day. Patient last appointment: Visit date not found Patient Phone numbers: [phone] (home) Request is for script(s) to be escript to pharmacy. Michelle Benavidez MA documented in this encounter [facility] 10-15-2024 History of Present illness Narrative Subjective [...] PA-C 5:53 PM documented in this encounter [facility] Work Phone: 12-10-2023 Telephone encounter Note Patient called requesting the following refill. Requested Prescriptions Pending Prescriptions Disp Refills potassium citrate ER (UROCIT-K) 10 mEq (1,080 mg) [Pharmacy Med Name: POT CITRA ER TAB 10MEQ] 360 tablet 3 Sig: TAKE 2 TABLETS TWICE A DAY Patient last appointment: Visit date not found Patient Phone numbers: [phone] (home) Request is for script(s) to be escript to pharmacy. Mir Vides MA [facility] 12-10-2023 Miscellaneous Notes Patient called requesting the following refill. Requested Prescriptions Pending Prescriptions Disp Refills potassium citrate ER (UROCIT-K) 10 mEq (1,080 mg) [Pharmacy Med Name: POT CITRA ER TAB 10MEQ] 360 tablet 3 Sig: TAKE 2 TABLETS TWICE A DAY Patient last appointment: Visit date not found Patient Phone numbers: [phone] (home) Request is for script(s) to be escript to pharmacy. Mir Vides MA documented in this encounter [facility] 10-22-2022 Note HNO ID: [id number] Author: RT Kashmir(R) Service: Radiology Author Type: [...] RT Kashmir(R) October 22, 2022 9:41 AM [facility] 10-22-2022 Note HNO ID: [id number] Author: Aidan Freire APRN.METALLURGICAL ANALYST Service: ? Author Type: Nurse Practitioner Type: [...] (no units) Date Value 08/05/2020 Negative Specific Mcbee, Ur (no units) Date Value 08/05/2020 1.025 [...] ORAL) Take by mouth once daily. omega 3-xax-wab-fish oil (FISH OIL) 100-160-1,000 mg cap Take [...] MEQ (1,080 MG) TABLET,EXTENDED RELEASE Aidan Freire APRN.[facility] 10-22-2022 History of Present illness Narrative [...] (no units) Date Value 08/05/2020 Negative Specific Mcbee, Ur (no units) Date Value 08/05/2020 1.025 [...] ORAL) Take by mouth once daily. omega 8-jxs-pob-fish oil (FISH OIL) 100-160-1,000 mg cap Take [...] MEQ (1,080 MG) TABLET,EXTENDED RELEASE Aidan Freire APRN.METALLURGICAL ANALYST documented in this encounter [facility] 04-25-2022 Note HNO ID: [id number] Author: Regan Alvarado MD Service: ? Author [...] mm left lower pole calculus April 04, [id number]-yucchs 2.1 L; calcium-313; citrate-515 April 22, 2021-KUB-3-4 [...] (no units) Date Value 08/05/2020 Negative Specific Mcbee, Ur (no units) Date Value 08/05/2020 1.025 [...] HISTORY Problem Relation (more content not included)... [facility] 04-25-2022 Instructions Regan Alvarado MD - 04/25/2022 [...] calcium diet This consist of consuming approximately 5206-6343 mg/day of dietary calcium A low calcium [...] cup (4 oz) of pure lemon or [place] juice in 32 oz of water OR [...] You can also do the same with limes/[place] juice if your prefer that taste more. You can also use both together! Squeeze fresh lemon or [place] juice to any beverage! Dilute 2 oz lemon/[place] juice with 16 oz of water and [...] little sugar and calories. Of those, the ebhzs-hp-tozrqjp drinks have more citric acid than those that come in a powder. Make a lemon or [place] spritzer: Pour 2 cups fresh lemon/[place] juice (about 9 medium carleen or limes) in a large pitcher, add 1 cup of Splenda or other no-calorie sweetener, then add 1 liter chilled club soda once the sugar is dissolved, plus a few slices of carleen/limes, and some ice cubes. Chill completely before serving. Use fresh squeezed lemon or [place] with EVOO on salad - will also save calories by avoiding high-fat salad dressing! Tip - roll carleen or limes on a hard surface while pressing down with your palm prior to cutting them. This will help to release their juices more easily. Alternatively, you can heat them for about 30 seconds in the microwave before squeezing. Use fresh squeezed lemon or [place] juice on fruit salads too! Not only will you get the added citrate benefit, but the acid will help prevent fresh cut fruits from [place] with exposure to air Use lemon or [place] juice on fish or in marinades for any type of meat. Look for recipes that contain these ingredients Read labels! Choose products that have citric listed at the beginning of the ingredients list. Some lemon-limes sodas (7Up or Sprite) are also relatively high in citric acid. If you drink dark sodas, consider switching to one of the clear ones with the lemon-[place] content. Dietary Approaches to Stop Hypertension Diet [...] for good health. documented in this encounter [facility] 04-25-2022 History of Present illness Narrative ESTABLISHED [...] mm left lower pole calculus April 04, [id number]-sgbozd 2.1 L; calcium-313; citrate-515 April 22, 2021-KUB-3-4 [...] (no units) Date Value 08/05/2020 Negative Specific Mcbee, Ur (no units) Date Value 08/05/2020 1.025 [...] ORAL) Take by mouth once daily. omega 3-njs-ksh-fish oil (FISH OIL) 100-160-1,000 mg cap Take [...] may be inappropriate. documented in this encounter [facility] 04-22-2021 Note HNO ID: [id number] Author: RT Marcia(R) Service: Radiology Author Type: [...] RT Marcia(R) April 22, 2021 12:25 PM [facility] Evaluation note Diagnosis Kidney stone- Primary Calculus of kidney documented in this encounter [facility] note* Diagnosis Left flank pain- Primary Abdominal pain, unspecified site Kidney stone Calculus of kidney documented in this encounter [facility] noteNo assessment information availableWDoctors Hospital Work Phone: Evaluation note* Diagnosis Kidney stone Calculus of kidney documented in this encounter [facility] note* Diagnosis Discomfort of right eye- Primary documented in this encounter [facility] Work Phone: Evaluation note* Diagnosis Kidney stone Calculus of kidney [facility] Diagnostic Procedure Only (Routine) - Pending Review Specialty Diagnoses / Procedures Referred By Jamee t Referred To Contact XR IMAGING Diagnoses Kidney stone Procedures XR ABDOMEN 1V SUPINE RADIOLOGIC EXAM ABDOMEN 1 VIEW Regan Alvarado MD [address] [place] [address] Xr Imaging Referral ID Status Reason Start Date Expiration Date Visits Requested Visits Authorized [id number] Pending Review Auto-Generat ed Referral 3 05/25/2023 1 1 [facility] for referral (narrative)* Diagnostic Procedure Only (Routine) - Closed Specialty Diagnoses / Procedures Referred By Contac t Referred To Contact XR IMAGING Diagnoses Kidney stone Left flank pain Procedures XR ABDOMEN 1V SUPINE RADIOLOGIC EXAM ABDOMEN 1 VIEW Aidan Freire APRN.CNP [address] [place] [address] Xr Imaging Referral ID Status Reason Start Date Expiration Date V isits Requested Visits Authorized [id number] Closed Auto-Generate d Referral 10/22/2022 11/21/2023 1 1 [facility] for referral (narrative)No reason for referral information availableWDoctors Hospital Work Phone: Reason for Referral Status Reason Specialty Diagnoses / Procedures Referre d By Contact Referred To Contact Closed Radiology Diagnoses Numbness and tingling Procedures MR Cervical Spine With And Without Contrast Marya Connell MD [address] [place] [address] [place] [id number] Status Reason Specialty Diagnoses / Procedures Referred By Contact Referred To Contact Authorized Specialty Services Required/Patie nt's Best Interest Physical Therapy Diagnoses HNP (herniated nucleus pulposus), cervical Marya Connell MD [address] [facility] [address] [place] [address] Status Reason Specialty Diagnoses / Procedures Referred By Contact Referred To Contact Authorized Neurology Diagnoses HNP (herniated nucleus pulposus), cervical Marya Connell MD [address] [place] [address] [address] [place] [address] Bassam Buenrostro MD [address] [facility] [address] [place] [address] Status Reason Specialty Diagnoses / Procedures Referre d By Contact Referred To Contact Closed Radiology Diagnoses Numbness and tingling Procedures MR Thoracic Spine With And Without Contrast Marya Connell MD [address] [facility] [address] [place] [address] Assessments Diagnosis Numbness and tingling Disturbance of [...] FoundDocuments on File Type Date Recorded Patient Caustic Preparer Expl anation Advance Directives and Livin g [...] 8:09 AM EDT Neurology Clinic Consult Neurology [facility] 01/20/2019 Marya Connell MD [address] [facility] [address] [facility] [address] Patient: Stacey Jarquin Date of : 1975 [...] & GROSS MOTOR: Abnormal Movements: None Coordination [id number]: Normal Coordination: [id number]:Normal Rapid Alternating Movements: Normal Drift: None Tone: [...] Buenrostro MD - 01/20/2019 1:15 PM EDT [facility] [address] [place] [address] Nerve Conduction & EMG Report Patient: Patricio [...] With And Without Contrast Marya Connell MD [address] [place] [address] Status Reason Specialty Diagnoses / Procedures Referred By Contact Referred To Contact Closed Neurology Diagnoses Numbness and tingling Sandra Sal MD [address] [facility] [address] [place] [address] Marya Connell MD [address] [place] [address] Status Reason Specialty Diagnoses / Procedures Referre d By Contact Referred To Contact Closed Radiology Diagnoses Numbness and tingling Procedures MR Thoracic Spine With And Without Contrast Marya Connell MD [address] [place] [address] Status Reason Specialty Diagnoses / Procedures Referre d By Contact Referred To Contact Closed Neurology Diagnoses HNP (herniated nucleus pulposus), cervical Marya Connell MD [address] [place] [address] Bassam Buenrostro MD [address] [place] [address] Reason Comments Kidney Stones Reason Comments Refill Request Reason Comments right eye discomfort Reason Onset Date Comments Refill Request 12/08/2024 (unrecognized sect ion and content) No Status Records FoundNo Status Records FoundNo Status Records FoundNo Status Records FoundNo Status Records FoundNo Status Records Found INFORMATION SOURCE (unrecogn ized section and content) DATE CREATED AUTHOR 03/06/2019 [facility] DATE CREATED AUTHOR AUTHOR'S ORGANIZ ATION 03/06/2019 [facility] DATE CREATED AUTHOR AUTHOR'S ORGANIZ ATION 04/23/2021 [facility] DATE CREATED AUTHOR AUTHOR'S ORGANIZ ATION 04/23/2021 [facility] DATE CREATED AUTHOR AUTHOR'S ORGANIZ ATION 10/27/2022 [facility] DATE CREATED AUTHOR AUTHOR'S ORGANIZ ATION 01/07/2025 [facility] Source Comments (unrecognize d section and content) In the event this informatio n is protected by the Federal Confidentiality of Alcohol and Drug Abuse Patient Records regulations: The Federal rules restrict any use of the information to criminally investigate or prosecute any alcohol or drug abuse patient.[facility] the event this information is protected by the Federal Confidentiality of Alcohol and Drug Abuse Patient Records regulations: The Federal rules restrict any use of the information to criminally investigate or prosecute any alcohol or drug abuse patient.[facility] Center[facility] the event this information is protected by the Federal Confidentiality of Alcohol and Drug Abuse Patient Records regulations: The Federal rules restrict any use of the information to criminally investigate or prosecute any alcohol or drug abuse patient.[facility] Center[facility] the event this information is protected by the Federal Confidentiality of Alcohol and Drug Abuse Patient Records regulations: The Federal rules restrict any use of the information to criminally investigate or prosecute any alcohol or drug abuse patient.[facility] Care Teams (unrecognized sec tion and content) Custom Bike Builder Relationship Specialty Start Date End Date Sandra Sal MD [address] [place] [id number] PCP - General 09/07/08 Custom Bike Builder Relationship Specialty Start Date End Date Sandra Sal MD [address] [place], [place] [id number] PCP - General 09/07/08 Team Status: Active Member Role Status Dates Dr. Jere Sal MD Family Provider Active Dr. Jere Sal MD Primary Care Provider Activ e Team Status: Inactive Member Role Status Dates Dr. Jere Sal MD Primary Care Provider, Attending Provider, Referring Provider Active Custom Bike Builder Relationship Specialty Start Date End Date Sandra Sal MD [address] [place] [address] PCP - General 09/07/08 Team Status: Active [...] November 30, 2024 End: November 30, 2024 Custom Bike Builder Relationship Specialty Start Date End Date Sandra Sal MD [address] [place] [address] PCP - General 09/07/08 Goals (unrecognized section [...] BE BASED ON THE PRIMARY CLINICAL RECORDS. [facility] [employer] [facility]. provides no warranty or guarantee of the accuracy or completeness of information in this document.
--- NOTE | 2025-01-26 07:29 | CA.SCORE ---
Calcium Scoring Date of Study:: 01/25/25 Indications Indications: Hyperlipidemia Coronary Calcium Scoring: High-resolution Computed Tomographic imaging of the chest was performed on [01/25/2025], with particular attention paid to the coronary arteries. Images from the examination were analyzed for the presence and extent of coronary artery calcification , using coronary calcium quantification software. The patient tolerated the procedure well and there were no complications. The results of the coronary calcification analysis are provided below. Findings Coronary Artery Left Main (LM): 0 Left Anterior Descending (LAD): 0 Left Circumflex (LCX): 0 Right Coronary Artery (RCA): 0 Total Agatston Score: 0 Percentile Rankin Calcium Scoring Interpretation: Different methods to categorize the overall amount of coronary plaque. Overall amount CAC SIS Visual of coronary plaque P1 Mild -100 <2 1-2 vessels with mild amount of plaque P2 Moderate 101-300 3-4 1-2 vessels with moderate amount, 3 vessels with mild amount of plaque P3 Severe 301-999 5-7 3 vessels with moderate amount, 1 vessel with severe amount of plaque P4 Extensive >1000 >8 2-3 vessels with severe amount of plaque Conclusion: No atherosclerotic plaquing noted.
== END | disposition home or self-care (01) ==
PROVIDERS: PCP Family Medicine; Referring Provider Family Medicine; Visit Provider Family Medicine
DX: E78.00 Pure hypercholesterolemia, unspecified (principal)
CPT/HCPCS: 75571; 76380